=== PATIENT | female | born 1990 | race Caucasian/White ===

== ENCOUNTER → 2018-03-24 13:48 | Outpatient (REF) | payer OTHER, SELFPAY ==
[2018-03-28 18:02] LABS: QuantiFERON TB NEGATIVE (Negative)
== END ==
LOC: LAB 13:48
PROVIDERS: Visit Provider Family Medicine
DX: Z11.1 Encounter for screening for respiratory tuberculosis (principal)
CPT/HCPCS: 36415; 86480

== ENCOUNTER → 2018-08-14 19:44 | Outpatient (REF) | payer OTHER, SELFPAY ==
[2018-08-14 20:17] LABS: HEMOLYSIS < 15 (0-50)
[2018-08-14 20:19] LABS: Add Manual Diff / Slide Review NO; Basophils Absolute Auto 0 /uL (0-100); Basophils Percent Auto 0.7 % (0-2); Eosinophils Absolute Auto 200 /uL (0-450); Eosinophils Percent Auto 2.3 % (2-4); Hematocrit 39.9 % (36-46); Hemoglobin 13.5 g/dL (12.0-16.0); Lymphocytes Absolute Auto 1000 /uL (1100-4500); Lymphocytes Percent Auto 15.8 % (25-40); Mean Corpuscular HGB Conc 33.8 % (30-36); Mean Corpuscular Hemoglobin 28.2 PG (26-34); Mean Corpuscular Volume 83.5 fL (80-100); Monocytes Absolute Auto 500 /uL (0-900); Monocytes Percent Auto 7.4 % (3-14); Neutrophils Absolute Auto 4800 /uL (1500-7000); Neutrophils Percent Auto 73.8 % (50-75); Platelet Count 154 X10^3/uL (150-400); Red Blood Cell Count 4.78 X10^6/uL (4.0-5.2); Red Cell Distribution Width 13.6 % (11.6-14.8); White Blood Cell Count 6.5 X10^3/uL (4.5-11.0)
[2018-08-14 20:23] LABS: Alanine Aminotransferase 14 IU/L (9-52); Albumin 4.8 g/dL (3.5-5.0); Albumin Globulin Ratio 1.7 (1.0-2.8); Alkaline Phosphatase 57 U/L (38-126); Aspartate Aminotransferase 20 IU/L (14-36); BUN Creatinine Ratio 11.1 (6-22); Bilirubin Total 0.7 mg/dL (0.2-1.3); Blood Urea Nitrogen 10 mg/dL (7-17); Calcium 9.9 mg/dL (8.4-10.2); Carbon Dioxide 30 mmol/L (22-32); Chloride 103 mmol/L (98-107); Estimated Glomerular Filt Rate > 60.0 mL/min (>60); Globulin 2.9 g/dL (1.7-4.1); Glucose 127 mg/dL (70-100); Potassium 4.3 mmol/L (3.4-5.1); Sodium 143 mmol/L (137-145); Total Protein 7.7 g/dL (6.3-8.2)
[2018-08-14 20:50] LABS: Erythrocyte Sedimentation Rate 16 MM/HR (0-20)
[2018-08-14 20:54] LABS: Thyroid Stimulating Hormone 0.34 uIU/mL (0.47-4.68)
[2018-08-14 20:58] LABS: Ferritin 42.2 ng/mL (6.27-137)
[2018-08-14 23:36] LABS: Folate 10.1 ng/mL (2.76-20.0); Vitamin B12 225 pg/mL (239-931)
== END ==
LOC: LAB 19:44
PROVIDERS: Visit Provider Family Medicine
DX: E03.9 Hypothyroidism, unspecified (principal); R53.83 Other fatigue; R53.1 Weakness; G89.29 Other chronic pain
CPT/HCPCS: 36415; 80053; 82607; 82728; 82746; 84443; 85025; 85651

== ENCOUNTER → 2020-06-07 10:37 | Outpatient (CLI) | payer OTHER, SELFPAY ==
[2020-06-07 12:28] LABS: Add Manual Diff / Slide Review NO; Basophils Absolute Auto 0 /uL (0-100); Basophils Percent Auto 0.3 % (0-2); Eosinophils Absolute Auto 100 /uL (0-450); Eosinophils Percent Auto 1.2 % (2-4); Hematocrit 39.2 % (36-46); Hemoglobin 13.6 g/dL (12.0-16.0); Lymphocytes Absolute Auto 2000 /uL (1100-4500); Lymphocytes Percent Auto 24.4 % (25-40); Mean Corpuscular HGB Conc 34.8 % (30-36); Mean Corpuscular Hemoglobin 28.7 PG (26-34); Mean Corpuscular Volume 82.4 fL (80-100); Monocytes Absolute Auto 400 /uL (0-900); Monocytes Percent Auto 5.1 % (3-14); Neutrophils Absolute Auto 5600 /uL (1500-7000); Platelet Count 234 X10^3/uL (150-400); Red Blood Cell Count 4.75 X10^6/uL (4.0-5.2); Red Cell Distribution Width 13.6 % (11.6-14.8); White Blood Cell Count 8.1 X10^3/uL (4.5-11.0)
[2020-06-07 12:52] LABS: Alanine Aminotransferase 13 IU/L (<35); Albumin 4.7 g/dL (3.5-5.0); Albumin Globulin Ratio 1.6 (1.0-2.8); Alkaline Phosphatase 50 U/L (38-126); Aspartate Aminotransferase 22 IU/L (14-36); BUN Creatinine Ratio 16.5 (6-22); Bilirubin Total 0.4 mg/dL (0.2-1.3); Blood Urea Nitrogen 13 mg/dL (7-17); Calcium 9.7 mg/dL (8.4-10.2); Carbon Dioxide 28 mmol/L (22-32); Chloride 102 mmol/L (98-107); Estimated Glomerular Filt Rate > 60.0 mL/min (>60); Globulin 2.9 g/dL (1.7-4.1); Glucose 86 mg/dL (70-100); HEMOLYSIS < 15 (0-50); Potassium 4.1 mmol/L (3.4-5.1); Sodium 138 mmol/L (137-145); Total Protein 7.6 g/dL (6.3-8.2)
== END ==
PROVIDERS: PCP Registered Nurse; Referring Provider Registered Nurse; Visit Provider Registered Nurse
DX: Z00.00 Encounter for general adult medical examination without abnormal findings (principal)
CPT/HCPCS: 36415; 80053; 85025

== ENCOUNTER 2021-03-26 08:33 | Day surgery (SDC) | payer OTHER, SELFPAY ==
[2021-03-24 12:49] VITALS: BMI 26.3
[2021-03-26] VITALS (10 sets, daily range): BP systolic 113–143; BP diastolic 72–97; PULSE 51–85; RESP 10–17; TEMP 35.9–36.6; O2SAT 96–100; BMI 26.3
[2021-03-26] MEDS: SCOPOLAMINE 1 PATCH TOP (09:14)
[2021-03-26] MEDS: LACTATED RINGERS 1,000 ML 42 ML IV (09:14)
[2021-03-26] MEDS: ACETAMINOPHEN 325 MG TABLET 975 MG PO (09:14)
--- NOTE | 2021-03-26 10:52 | PM.PREOP ---
Pre-operative Note Interval Note History & Physical reviewed/Exam performed by Physician: Yes Changes to H&P: Yes
--- NOTE | 2021-03-26 10:53 | PM.HP.1 ---
History of Present Illness History of Present Illness Date Patient Seen: 03/26/21 Time Patient Seen: 10:53 Chief complaint: Chronic tonsillitis Narrative: 31-year-old female with with chronic tonsillitis, tonsil stones, chronic throat pain, recurring acute tonsillitis and some upper airway obstruction, incompletely managed with medical therapy, presents for tonsillectomy and possible adenoidectomy. She was last seen in clinic , no interval health changes, stable fibromyalgia and asthma. No recent cough cold or fever. She is requesting Zofran to use as needed postoperatively, evidently an issue with pain medicine in the past. Patient History Medical History [place] disease (1998) IBS (irritable bowel syndrome) Surgical History History of lung biopsy (1998) Family & Social History Social History: household members spouse Tobacco & Substance use: Smoking Status Never smoker alcohol intake never Substance Use Type does not use Meds Home Medications and Allergies Home Medications Medication Instructions Recorded Confirmed Type acyclovir 800 mg tablet 800 mg PO DAILY #30 tab 05/26/20 03/26/21 Rx albuterol sulfate 90 mcg/actuation 2 puff INHALATION Q4-6H PRN #8.5 g 11/14/20 03/26/21 Rx aerosol inhaler Fish Oil PO 12/16/20 12/16/20 History Naltrexone Low Dose 5 mg PO DAILY 12/16/20 03/26/21 History Vitamin B12 PO 12/16/20 12/16/20 History Vitamin D3 PO 12/16/20 12/16/20 History cetirizine 10 mg tablet 10 mg PO DAILY 03/26/21 03/26/21 History Allergies Allergy/AdvReac Type Severity Reaction Status Date / Time iodine AdvReac hives Verified 12/16/20 16:07 Review of Systems Review of Systems Narrative: Negative except as mentioned in the HPI Exam Vital Signs (past 8 hours): - 03/26/21 09:00 Temperature 97.6 F Pulse Rate 80 Respiratory Rate 16 Blood Pressure 113/74 Pulse Oximetry 98 Oxygen Delivery Method Room Air Narrative Exam Narrative: Well-developed well-nourished female in no acute distress heart regular rate and rhythm without murmur, lungs clear to auscultation bilaterally Assessment & Plan Assessment & Plan narrative: Assessment: Chronic tonsillitis, tonsil stones, chronic throat pain, recurrent acute tonsillitis and upper airway obstruction Plan: Following discussion of the material risks benefits complications and alternatives, the patient elected to proceed with tonsillectomy and possible adenoidectomy. Time Spent With Patient Critical Care time: I spent a total of [] minutes of critical care time on this patient's care today; this time is exclusive of procedural time.
--- NOTE | 2021-03-26 10:55 | PM.OP.1 ---
Operative Date/Time/Diagnoses Date of procedure: 03/26/21 Time of procedure: 11:43 Pre-op diagnosis: Chronic tonsillitis, tonsil stones, throat pain, recurring acute tonsillitis and upper airway obstruction Post-op diagnosis: same Procedure & Clinicians Procedure: Tonsillectomy Same procedure as scheduled: Yes Indications: 31-year-old female with the above diagnoses incompletely managed with medical therapy presents for the above procedure. Following discussion of the material risks benefits complications and alternatives, she elected to proceed. Surgeon: Dakota Johnson Click Yes if Unassisted: Yes Anesthesia Type: General and Local Operative Notes Findings: Intact palate, single uvula, 2+ tonsils with stones, right minimally irregular, no significant adenoids Estimated Blood Loss (mL): 20 Procedure in detail: Following identification and confirmation of consent the patient was brought to the operating room suite and placed in the supine position. General endotracheal anesthesia was administered. A head wrap, shoulder roll, and mouth gag were placed and a red rubber catheter was inserted through the nostril and out the mouth to retract the soft palate. There was no visible adenoid tissue. The left tonsil was retracted medially and suction electrocautery on a setting of 30 was used to dissect the tonsil in a subcapsular plane, followed by hemostasis with the same. This process was repeated on the right side with identical findings. The tonsillar fossae were superficially infiltrated bilaterally with a 1:1 mixture of 1% lidocaine 1 100,000 epinephrine and 0.25% Marcaine 1 to [id number] epinephrine. Mouth gag and rubber catheter were removed and the patient was extubated in the operating room and taken to the recovery room in stable condition without known complication. Complications: none Post-operative Condition: stable Disposition: same day surgery Plan for aftercare: Push fluids, alternate Tylenol and Advil every 3 hours for baseline pain control, oxycodone for breakthrough pain, Zofran if necessary for nausia. Soft diet 2 full weeks, no heavy lifting or straining 2 weeks.
--- NOTE | 2021-03-26 10:57 | SUR.OPER ---
Supine on padded OR bed, head on pillow, arms padded and tucked at sides, legs uncrossed, safety belt at thigh, tape over blanket over lower legs .
[2021-03-26] MEDS: BUPIVACAINE 0.25% (PF) VIAL 30 ML INJ (11:24)
[2021-03-26] MEDS: LIDOCAINE 1% W/EPI 20 ML INJ (11:25)
[2021-03-26] MEDS: fentaNYL 100 MCG/2 ML INJ IV (12:22)
[2021-03-26] MEDS: OXYCODONE IR 5 MG TABLET PO ×2 (12:24→12:42)
== END 2021-03-26 13:15 | disposition home or self-care (01) ==
PROVIDERS: PCP Registered Nurse; Referring Provider Otolaryngology; Visit Provider Otolaryngology
PROC: (CPT 42826; principal; 2021-03-26 10:15)
DX: J03.91 Acute recurrent tonsillitis, unspecified (principal); J35.01 Chronic tonsillitis; J35.8 Other chronic diseases of tonsils and adenoids; M79.7 Fibromyalgia; J45.909 Unspecified asthma, uncomplicated
CPT/HCPCS: 42826; J0330; J1100; J2250; J2405; J2704; J3010

== ENCOUNTER 2021-03-29 21:14 | Emergency (ER) | payer OTHER, SELFPAY ==
[2021-03-29 21:17] VITALS: BP 124/81; PULSE 82; RESP 22; TEMP 36.2; O2SAT 97
--- NOTE | 2021-03-29 23:55 | ED.RECABL ---
HPI - Recheck/Abnormal Lab/Rx General Chief Complaint: Recheck/Abnormal Lab/Rx Stated Complaint: BLEEDING AFTER TONSILECTOMY ON 03/26 Time Seen by Provider: 03/29/21 23:47 Source: patient Mode of arrival: Ambulatory History of Present Illness HPI narrative: 31-year-old woman who is now 1 day for post tonsillectomy. She is using intermittent doses of ibuprofen, Tylenol and oxycodone and finding that it isn't all that helpful with pain control so she has not been taking as much. She is able to eat and drink small amounts. Today she noticed that some of the eschar came off 1 of the tonsillar pillars and she was having a slight amount of bleeding. She comes in for further evaluation. She complains that her pain is still not adequately controlled, she is having fullness in the posterior pharynx and tightness over the TMJ area bilaterally. She is having no fevers, cough, wheezing, abdominal pain, vomiting, diarrhea. Related Data Home Medications Medication Instructions Recorded Confirmed Fish Oil PO 12/16/20 12/16/20 Naltrexone Low Dose 5 mg PO DAILY 12/16/20 03/26/21 Vitamin B12 PO 12/16/20 12/16/20 Vitamin D3 PO 12/16/20 12/16/20 cetirizine 10 mg tablet 10 mg PO DAILY 03/26/21 03/26/21 Previous Rx's Medication Instructions Recorded acyclovir 800 mg tablet 800 mg PO DAILY #30 tab 05/26/20 albuterol sulfate 90 mcg/actuation 2 puff INHALATION Q4-6H PRN #8.5 g 11/14/20 aerosol inhaler Allergies Allergy/AdvReac Type Severity Reaction Status Date / Time iodine AdvReac hives Verified 12/16/20 16:07 Review of Systems Review of Systems Narrative: Remainder of complete review of systems is otherwise unremarkable except for that included in the HPI. Patient History Medical History (Updated 03/30/21 @ 00:01 by Aniya River MD) [place] disease (1998) IBS (irritable bowel syndrome) Surgical History (Updated 03/29/21 @ 23:57 by Aniya River MD) History of lung biopsy (1998) History of tonsillectomy Social History household members: spouse Smoking Status: Never smoker alcohol intake: never Smoking Status: Never smoker Substance Use Type: does not use Exam Narrative Exam Narrative: General: Alert appropriate in no acute distress HEENT: Appropriate amount of eschar and erythema over the tonsillar pillars with no active bleeding at this time. She does not have significant cervical adenopathy. Respiratory: Able to speak in full sentences, no obvious respiratory distress Skin: No obvious rashes, warm and dry Neurologic: Grossly intact no obvious asymmetries or abnormalities Psych: appropriate insight and affect, cooperative Initial Vital Signs Initial Vital Signs: Vital Signs Temperature 97.2 F L 03/29/21 21:17 Pulse Rate 82 03/29/21 21:17 Respiratory Rate 22 03/29/21 21:17 Blood Pressure 124/81 03/29/21 21:17 Pulse Oximetry 97 03/29/21 21:17 Course Vital Signs Vital signs: Vital Signs - 8 hr 03/29/21 21:17 Temperature 97.2 F L Pulse Rate 82 Respiratory Rate 22 Blood Pressure 124/81 Pulse Oximetry 97 MDM - Recheck/Abnormal Lab/Rx MDM Narrative Medical decision making narrative: 31-year-old woman day 4 post tonsillectomy for chronic tonsillitis with some bleeding after eschar came off 1 of the tonsillar pillars today. She has been observed in the emergency department for approximately 3 hours and bleeding continues to improve. No additional treatment was required. Discussed options for helping with pain control. Recommend switching to 400 mg of ibuprofen with Tylenol simultaneously an adding the oxycodone to that for severe pain. She is given the IM dose of Toradol to help with pain in the emergency department. She is otherwise healing as expected with all clinical findings appropriate for day 4 of her recovery. She is safe for home discharge Discharge Plan Departure Patient Disposition: Home Clinical Impression: Post-operative haemorrhage, Post-operative pain Instructions: DI for Tonsillectomy-Adult Activity Restrictions/Additional Instructions: Thank you for coming in today You did have a little bit of bleeding as some of the eschar came off the surgical site. Fortunately your body has handled this nicely and the bleeding is stopped at this time. The tonsil sites look absolutely appropriate for this point in your recovery. Using 400 mg of ibuprofen (2 [id number] pills) and 1 Tylenol every 6 hours can be very helpful in controlling pain. For severe pain adding an oxycodone to this combination can be helpful. Warm salt water rinses can help remove some of the debris from the surgical site and help a bit with the bad taste and smell in your mouth. Your healing seems to be absolutely appropriate for this stage of recovery. I hope you continue to heal nicely Prescriptions: No Action albuterol sulfate 90 mcg/actuation HFA aerosol inhaler 2 puff inhalation Q4-6H PRN (Reason: shortness of breath or wheezing) Qty: 8.5 2RF Naltrexone Low Dose 5 mg 5 mg PO DAILY 0RF Vitamin B12 PO 0RF Fish Oil PO 0RF Vitamin D3 PO 0RF acyclovir 800 mg tablet 800 mg PO DAILY Qty: 30 0RF cetirizine 10 mg Tablet 10 mg PO DAILY 0RF Referrals: Mg Estrada ARNP [Primary Care Provider] -
[2021-03-30] MEDS: KETOROLAC 30 MG/ML VIAL IM
[2021-03-30 00:10] VITALS: PULSE 77; RESP 14; O2SAT 99
== END 2021-03-30 00:10 | disposition home or self-care (01) ==
PROVIDERS: Emergency Provider Emergency Medicine; PCP Registered Nurse
DX: K91.840 Postprocedural hemorrhage of a digestive system organ or structure following a digestive system procedure (principal); G89.18 Other acute postprocedural pain
CPT/HCPCS: 96372; 99283; J1885

== ENCOUNTER 2021-06-30 16:07 | Emergency (ER) | payer OTHER, SELFPAY ==
[2021-06-30] VITALS (9 sets, daily range): BP systolic 116–128; BP diastolic 64–81; PULSE 92–106; RESP 20–27; TEMP 36.6; O2SAT 96–99
--- NOTE | 2021-06-30 16:35 | DI.CT.S_ITS ---
PROCEDURE: CT ABDOMEN PELVIS WO CON INDICATIONS: abdominal pain TECHNIQUE: Axial sections were acquired from the lung bases to the pubic symphysis. Coronal and sagittal reformats were performed. For radiation dose reduction, the following was used: automated exposure control, adjustment of mA and/or kV according to patient size. COMPARISON: None. FINDINGS: Image quality: Excellent. Lung bases: Unremarkable. Heart: No significant findings. URINARY: Right Kidney: No stones or hydronephrosis. Right Ureter: No hydroureter. Left Kidney: No stones or hydronephrosis. Left Ureter: No hydroureter. Bladder: Normal wall thickness. No stones. ABDOMEN: Liver: Unremarkable. Gallbladder: Unremarkable. Biliary ducts: Unremarkable. Pancreas: Unremarkable. Spleen: The spleen is mildly enlarged, measuring 14.5 cm craniocaudal. Adrenal Glands: Unremarkable. Stomach and Bowel: Stomach, small bowel loops, and colon are unremarkable. A normal appendix is seen, as on series 2, image 56. Peritoneum: No abnormal intraperitoneal fluid. No free air. Ventral Wall: No hernia. Abdominal Nodes: No enlarged retroperitoneal or mesenteric lymph nodes. Vessels: Aorta and inferior vena cava are normal in size. PELVIS: Pelvic Organs: The uterus appears normal for age. No adnexal masses are seen. There is a left ovarian cyst seen that measures approximately 2.9 cm, which is considered to be within physiologic limits. Pelvic Nodes: Unremarkable. Miscellaneous: No inguinal hernias are seen. Bones: Mild dextroconvex scoliotic curvature is seen. IMPRESSION: Normal appendix. Negative for bowel obstruction. Incidental note is made of: Mild splenomegaly Dextroconvex scoliotic curvature Left ovarian cyst, considered to be within physiologic limits. Dictated by: Rogers Blake M.D. on 06/30/2021 at 17:07 Approved by: Rogers Blake M.D. on 06/30/2021 at 17:10
--- NOTE | 2021-06-30 16:39 | ED.NAVMDI ---
HPI - Nausea/Vomiting/Diarrhea <Johnny Campos PA-C - Last Filed: 06/30/21 19:44> General Chief complaint: Nausea/Vomiting/Diarrhea Stated complaint: UNABLE TO STOP THROWING UP Time Seen by Provider: 06/30/21 16:25 Source: patient Mode of arrival: Ambulatory History of Present Illness HPI Narrative: Patient presents to the ED complaining of nausea and vomiting for the past 24 hours. She has had epigastric abdominal pain radiating into her back. She has a history of irritable bowel syndrome and has occasional diarrhea episodes and admits that she has had 1 episode of diarrhea today. She has been vomiting multiple times throughout the day today unable to keep any liquids or food down today last meal was dinner last night which was lettuce wraps. No reported fever. She states that she has been on an antibiotic for chronic sinusitis and was scheduled to see an ENT and a neurologist for her dizziness and headaches that she has been having off and on for the past few weeks. She states she is having a mild headache today however her concern today is mostly related to the nausea and the abdominal pain. Related Data Home Medications Medication Instructions Recorded Confirmed Fish Oil PO 12/16/20 06/22/21 Naltrexone Low Dose 5 mg PO DAILY 12/16/20 06/22/21 Vitamin B12 PO 12/16/20 06/22/21 Vitamin D3 PO 12/16/20 06/22/21 cetirizine 10 mg tablet 10 mg PO DAILY 03/26/21 06/22/21 Saccharomyces boulardii [Daily PO 03/31/21 06/22/21 Probiotic (S. boulardii)] Previous Rx's Medication Instructions Recorded acyclovir 800 mg tablet 800 mg PO DAILY #30 tab 05/26/20 albuterol sulfate 90 mcg/actuation 2 puff INHALATION Q4-6H PRN #8.5 g 11/14/20 aerosol inhaler Allergies Allergy/AdvReac Type Severity Reaction Status Date / Time iodine AdvReac hives Verified 06/30/21 17:51 Review of Systems <Johnny Campos PA-C - Last Filed: 06/30/21 19:44> Review of Systems ROS Unobtainable: All systems reviewed & are unremarkable except as noted in HPI and below Constitutional Constitutional: Denies chills, Denies fatigue, Denies fever(s), Denies frequent falls, Denies lethargy and Denies weakness Eyes Eyes: Denies change in vision, Denies eye discharge, Denies irritation and Denies loss of vision ENT Ears, Nose, Mouth, and Throat: Denies change in voice, Denies dizziness, Denies neck pain, Denies sore throat and Denies throat swelling Cardiovascular Cardiovascular: Denies chest pain, Denies irregular heart rhythm, Denies lightheadedness, Denies palpitations, Denies dyspnea, Denies dyspnea on exertion and Denies orthopnea Respiratory Respiratory: Denies cough, Denies dyspnea, Denies dyspnea on exertion and Denies wheezing Gastrointestinal Gastrointestinal: Reports abdominal pain, Reports change in bowel habits, Reports cramping, Reports diarrhea, Reports loose stools, Reports nausea and Reports vomiting Genitourinary Genitourinary: Denies hematuria, Denies flank pain, Denies urinary incontinence and Denies urinary urgency Musculoskeletal Musculoskeletal: Denies back pain, Denies muscle weakness, Denies neck pain, Denies numbness and Denies tingling Integumentary/Breasts Skin/Breast: Denies pruritus, Denies erythema, Denies rash and Denies wounds Neurologic Neurologic: Denies behavioral changes, Denies confusion, Denies dizziness, Denies frequent falls, Denies loss of vision, Denies numbness, Denies tingling and Denies weakness Psychiatric Psychiatric: Denies anxiety, Denies behavioral changes, Denies confusion, Denies depression, Denies homicidal ideation and Denies suicidal ideation Endocrine Endocrine: Denies fatigue, Denies flushing and Denies palpitations Hematologic/Lymphatic Hematologic/Lymphatic: Denies easy bruising Allergic/Immunologic Allergic/Immunologic: Denies urticaria, Denies throat swelling and Denies wheezing Patient History <Johnny Campos PA-C - Last Filed: 06/30/21 19:44> Medical History [place] disease (1998) IBS (irritable bowel syndrome) Surgical History History of lung biopsy (1998) History of tonsillectomy Social History household members: spouse Smoking Status: Never smoker alcohol intake: never Smoking Status: Never smoker Substance Use Type: does not use Exam <Johnny Campos PA-C - Last Filed: 06/30/21 19:44> Initial Vital Signs Initial Vital Signs: Vital Signs Temperature 97.8 F 06/30/21 16:11 Pulse Rate 106 H 06/30/21 16:11 Respiratory Rate 20 06/30/21 16:11 Blood Pressure 128/72 06/30/21 16:11 Pulse Oximetry 97 06/30/21 16:11 Const General: cooperative, in distress and ill appearing Nutritional Appearance: average body habitus HENMT Head: normal to inspection and normocephalic Ears: hearing grossly normal bilaterally and external ears normal Nose: external nose normal and nares normal Face and sinus: normal facial exam and face symmetric Eyes Pupils: PERRL Resp Effort & Inspection: normal respiratory effort and able to speak in complete sentences Auscultation: clear to auscultation bilaterally Cardio Rhythm: regular rhythm Heart Sounds: S1 normal and S2 normal GI Inspection: normal to inspection Palpation: tender (Epigastric region) Percussion: normal to percussion Auscultation: normal bowel sounds Skin General: no rashes or lesions noted <Kathie Laura DO - Last Filed: 07/01/21 01:40> Initial Vital Signs Initial Vital Signs: Vital Signs Temperature 97.8 F 06/30/21 16:11 Pulse Rate 106 H 06/30/21 16:11 Respiratory Rate 20 06/30/21 16:11 Blood Pressure 128/72 06/30/21 16:11 Pulse Oximetry 97 06/30/21 16:11 Course <Johnny Campos PA-C - Last Filed: 06/30/21 19:44> Orders Ordered: ED Orders 06/30/21 16:40 COVID19 -Nasal swab/Pre-Proc Stat Complete Blood Count AUTO DIFF Stat Comprehensive Metabolic Panel Stat Lipase Stat 06/30/21 17:29 Test Urine Stat Urinalysis and Microscopic Stat Discontinued Medications Sodium Chloride (Normal Saline 0.9%) 1,000 mls @ 1,000 mls/hr IV BOLUS ONE Stop: 06/30/21 17:34 Last Infusion: 06/30/21 17:40 Dose: 0 mls/hr Documented by: Admin: 06/30/21 16:46 Dose: 1,000 mls/hr Documented by: REGINA Sodium Chloride (Normal Saline 0.9%) 1,000 mls @ 1,000 mls/hr IV BOLUS ONE Stop: 06/30/21 19:21 Last Infusion: 06/30/21 20:59 Dose: 0 mls/hr Documented by: Admin: 06/30/21 18:35 Dose: 1,000 mls/hr Documented by: ELIDA Ketorolac Tromethamine (Ketorolac 30 Mg/Ml Vial) 30 mg IV NOW ONE Stop: 06/30/21 18:23 Last Admin: 06/30/21 18:35 Dose: 30 mg Documented by: ELIDA Ondansetron HCl (Ondansetron 4 Mg/2 Ml Inj) 4 mg IV NOW ONE Stop: 06/30/21 16:36 Last Admin: 06/30/21 16:47 Dose: 4 mg Documented by: REGINA Ondansetron HCl (Ondansetron 4 Mg/2 Ml Inj) 4 mg IV NOW ONE Stop: 06/30/21 18:23 Last Admin: 06/30/21 18:35 Dose: 4 mg Documented by: ELIDA Vital Signs Vital signs: Vital Signs - 8 hr 06/30/21 18:04 06/30/21 18:30 06/30/21 18:31 Pulse Rate 102 H 98 H 96 H Respiratory Rate 25 H 27 H 22 Blood Pressure 120/73 Pulse Oximetry 96 98 98 06/30/21 19:00 06/30/21 19:30 Pulse Rate 102 H 95 H Respiratory Rate 25 H 23 Blood Pressure 124/81 119/64 Pulse Oximetry 99 <Kathie Laura DO - Last Filed: 07/01/21 01:40> Orders Ordered: ED Orders 06/30/21 16:40 COVID19 -Nasal swab/Pre-Proc Stat Complete Blood Count AUTO DIFF Stat Comprehensive Metabolic Panel Stat Lipase Stat 06/30/21 17:29 Test Urine Stat Urinalysis and Microscopic Stat Discontinued Medications Sodium Chloride (Normal Saline 0.9%) 1,000 mls @ 1,000 mls/hr IV BOLUS ONE Stop: 06/30/21 17:34 Last Infusion: 06/30/21 17:40 Dose: 0 mls/hr Documented by: Admin: 06/30/21 16:46 Dose: 1,000 mls/hr Documented by: REGINA Sodium Chloride (Normal Saline 0.9%) 1,000 mls @ 1,000 mls/hr IV BOLUS ONE Stop: 06/30/21 19:21 Last Infusion: 06/30/21 20:59 Dose: 0 mls/hr Documented by: Admin: 06/30/21 18:35 Dose: 1,000 mls/hr Documented by: ELIDA Ketorolac Tromethamine (Ketorolac 30 Mg/Ml Vial) 30 mg IV NOW ONE Stop: 06/30/21 18:23 Last Admin: 06/30/21 18:35 Dose: 30 mg Documented by: ELIDA Ondansetron HCl (Ondansetron 4 Mg/2 Ml Inj) 4 mg IV NOW ONE Stop: 06/30/21 16:36 Last Admin: 06/30/21 16:47 Dose: 4 mg Documented by: REGINA Ondansetron HCl (Ondansetron 4 Mg/2 Ml Inj) 4 mg IV NOW ONE Stop: 06/30/21 18:23 Last Admin: 06/30/21 18:35 Dose: 4 mg Documented by: ELIDA Vital Signs Vital signs: Vital Signs - 8 hr 06/30/21 18:04 06/30/21 18:30 06/30/21 18:31 Pulse Rate 102 H 98 H 96 H Respiratory Rate 25 H 27 H 22 Blood Pressure 120/73 Pulse Oximetry 96 98 98 06/30/21 19:00 06/30/21 19:30 Pulse Rate 102 H 95 H Respiratory Rate 25 H 23 Blood Pressure 124/81 119/64 Pulse Oximetry 99 MDM - Nausea/Vomiting/Diarrhea <Johnny Campos PA-C - Last Filed: 06/30/21 19:44> Differential Diagnosis Differential diagnosis: Likely gastroenteritis and dehydration Lab Data Result diagrams: 06/30/21 16:40 06/30/21 16:40 Labs: Lab Results 06/30/21 06/30/21 06/30/21 Range/Units 16:40 16:40 16:40 WBC 7.0 (4.5-11.0) X10^3/uL RBC 4.96 (4.0-5.2) X10^6/uL Hgb 14.1 (12.0-16.0) g/dL Hct 40.6 (36-46) % MCV 81.8 (80-100) fL MCH 28.4 (26-34) PG MCHC 34.7 (30-36) % RDW 13.2 (11.6-14.8) % Plt Count 145 L (150-400) X10^3/uL Neut % (Auto) 94.9 H (50-75) % Lymph % (Auto) 2.1 L (25-40) % Rankin % (Auto) 2.8 L (3-14) % Eos % (Auto) 0.0 L (2-4) % Baso % (Auto) 0.2 (0-2) % Neut # (Auto) 6600 (7869-6797) /uL Lymph # (Auto) 100 L (4388-4816) /uL Rankin # (Auto) 200 (0-900) /uL Eos # (Auto) 0 (0-450) /uL Baso # (Auto) 0 (0-100) /uL Sodium 139 (137-145) mmol/L Potassium 3.8 (3.4-5.1) mmol/L Chloride 104 (98-107) mmol/L Carbon Dioxide 30 (22-32) mmol/L BUN 12 (7-17) mg/dL Creatinine 0.86 (0.52-1.04) mg/dL Estimated GFR > 60.0 (>60) mL/min BUN/Creatinine Ratio 14.0 (6-22) Glucose 137 H (70-100) mg/dL Calcium 9.3 (8.4-10.2) mg/dL Total Bilirubin 0.7 (0.2-1.3) mg/dL AST 27 (14-36) IU/L ALT 16 (<35) IU/L Alkaline Phosphatase 57 (38-126) U/L Total Protein 8.0 (6.3-8.2) g/dL Albumin 4.7 (3.5-5.0) g/dL Globulin 3.3 (1.7-4.1) g/dL Albumin/Globulin Ratio 1.4 (1.0-2.8) Lipase 37 (23-300) U/L Urine Color Urine Appearance Urine pH (4.5-8.0) Ur Specific [place] (1.000-1.035) Urine Protein (Negative) Urine Glucose (UA) (Negative) g/dL Urine Ketones (NEGATIVE) Urine Occult Blood (Negative) Urine Nitrate (Negative) Urine Bilirubin (NEGATIVE) Urine Urobilinogen (0.2) E.U./dL Ur Leukocyte Esterase (NEGATIVE) Urine RBC (0-5/HPF) Urine WBC (0-5/HPF) Ur Squamous Epith Cells (0-5/HPF) Urine Bacteria (None) Urine Mucus (Negative) Ur Culture Indicated? Urine Test (Negative) SARS-CoV-2 (PCR) Negative (Negative) 06/30/21 06/30/21 Range/Units 17:29 17:29 WBC (4.5-11.0) X10^3/uL RBC (4.0-5.2) X10^6/uL Hgb (12.0-16.0) g/dL Hct (36-46) % MCV (80-100) fL MCH (26-34) PG MCHC (30-36) % RDW (11.6-14.8) % Plt Count (150-400) X10^3/uL Neut % (Auto) (50-75) % Lymph % (Auto) (25-40) % Rankin % (Auto) (3-14) % Eos % (Auto) (2-4) % Baso % (Auto) (0-2) % Neut # (Auto) (7324-7214) /uL Lymph # (Auto) (1960-3123) /uL Rankin # (Auto) (0-900) /uL Eos # (Auto) (0-450) /uL Baso # (Auto) (0-100) /uL Sodium (137-145) mmol/L Potassium (3.4-5.1) mmol/L Chloride (98-107) mmol/L Carbon Dioxide (22-32) mmol/L BUN (7-17) mg/dL Creatinine (0.52-1.04) mg/dL Estimated GFR (>60) mL/min BUN/Creatinine Ratio (6-22) Glucose (70-100) mg/dL Calcium (8.4-10.2) mg/dL Total Bilirubin (0.2-1.3) mg/dL AST (14-36) IU/L ALT (<35) IU/L Alkaline Phosphatase (38-126) U/L Total Protein (6.3-8.2) g/dL Albumin (3.5-5.0) g/dL Globulin (1.7-4.1) g/dL Albumin/Globulin Ratio (1.0-2.8) Lipase (23-300) U/L Urine Color Yellow Urine Appearance Clear Urine pH 5.5 (4.5-8.0) Ur Specific [place] 1.020 (1.000-1.035) Urine Protein Negative (Negative) Urine Glucose (UA) Negative (Negative) g/dL Urine Ketones 2+ H (NEGATIVE) Urine Occult Blood Trace-lysed (Negative) Urine Nitrate Negative (Negative) Urine Bilirubin Negative (NEGATIVE) Urine Urobilinogen 0.2 (0.2) E.U./dL Ur Leukocyte Esterase Negative (NEGATIVE) Urine RBC 0-1/hpf (0-5/HPF) Urine WBC 0-1/hpf (0-5/HPF) Ur Squamous Epith Cells 0-1 /hpf (0-5/HPF) Urine Bacteria None seen (None) Urine Mucus 1+ H (Negative) Ur Culture Indicated? Cult not indicated Urine Test Negative (Negative) SARS-CoV-2 (PCR) (Negative) Point of Care Testing Test Results Negative Glucose POC 137 Urine Dip Bedside Urine Glucose Negative Bedside Urine Bilirubin ++ 2 Bedside Urine Ketone ++ 40 Urine Specific [place] 1.025 Bedside Urine Occult Blood - Negative Bedside Urine pH 6.0 Bedside Urine Protein - Negative Bedside Urine Nitrite - Negative Bedside Urine Leukocytes - Negative Esterase Imaging Data CT scan - abdomen/pelvis: Radiologist's Impression: PROCEDURE:? CT ABDOMEN PELVIS WO CON ? INDICATIONS:? abdominal pain ? TECHNIQUE:? Axial sections were acquired from the lung bases to the pubic symphysis.? Coronal and sagittal reformats were performed.? For radiation dose reduction, the following was used: ?automated exposure control, adjustment of mA and/or kV according to patient size.? ? COMPARISON:? None. ? FINDINGS:? Image quality:? Excellent.? ? Lung bases:? Unremarkable.? ? Heart:? No significant findings. ? URINARY: Right Kidney: ? No stones or hydronephrosis.? Right Ureter:? No hydroureter.? ? Left Kidney: ? No stones or hydronephrosis. Left Ureter:? No hydroureter.? ? Bladder:? Normal wall thickness. No stones. ? ? ? ABDOMEN: Liver:? Unremarkable.? ? Gallbladder:? Unremarkable.? ? Biliary ducts:? Unremarkable.? ? Pancreas:? Unremarkable.? ? Spleen:? The spleen is mildly enlarged, measuring 14.5 cm craniocaudal. Adrenal Glands:? Unremarkable.? ? ? Stomach and Bowel:? Stomach, small bowel loops, and colon are unremarkable.? A normal appendix is seen, as on series 2, image 56. Peritoneum:? No abnormal intraperitoneal fluid.? No free air.? ? Ventral Wall: ? No hernia.? Abdominal Nodes:? No enlarged retroperitoneal or mesenteric lymph nodes.? Vessels:? Aorta and inferior vena cava are normal in size.? ? PELVIS: Pelvic Organs: The uterus appears normal for age.? No adnexal masses are seen.? There is a left ovarian cyst seen that measures approximately 2.9 cm, which is considered to be within physiologic limits. Pelvic Nodes: Unremarkable. Miscellaneous: No inguinal hernias are seen. ? ? ? Bones:? Mild dextroconvex scoliotic curvature is seen.? ? IMPRESSION:? ? Normal appendix. ? Negative for bowel obstruction. ? ? ? Incidental note is made of: Mild splenomegaly Dextroconvex scoliotic curvature Left ovarian cyst, considered to be within physiologic limits. ? ? Dictated by: Rogers Blake M.D. on 06/30/2021 at 17:07 ? ? Approved by: Rogers Blake M.D. on 06/30/2021 at 17:10?? MDM Narrative Medical decision making narrative: Patient was evaluated today for nausea and vomiting that has been going on for the past few days. She has been home unable to keep any fluids down and as result has become quite dehydrated and is having headache. Blood work and CT of the abdomen pelvis show no evidence of any infection or acute process and as result should be treated symptomatically. Antiemetics and NSAIDs for effective in treating her nausea and her pain. She responded well to the IV fluids and reports feeling much better and is agreeable to be discharged home. A prescription for Phenergan p.o. will be sent over to her pharmacy to help minimize her nausea. She will follow-up with her PCP or return to the ED as needed. <Kathie Laura, DO - Last Filed: 07/01/21 01:40> Lab Data Labs: Lab Results 06/30/21 06/30/21 06/30/21 Range/Units 16:40 16:40 16:40 WBC 7.0 (4.5-11.0) X10^3/uL RBC 4.96 (4.0-5.2) X10^6/uL Hgb 14.1 (12.0-16.0) g/dL Hct 40.6 (36-46) % MCV 81.8 (80-100) fL MCH 28.4 (26-34) PG MCHC 34.7 (30-36) % RDW 13.2 (11.6-14.8) % Plt Count 145 L (150-400) X10^3/uL Neut % (Auto) 94.9 H (50-75) % Lymph % (Auto) 2.1 L (25-40) % Rankin % (Auto) 2.8 L (3-14) % Eos % (Auto) 0.0 L (2-4) % Baso % (Auto) 0.2 (0-2) % Neut # (Auto) 6600 (8146-0758) /uL Lymph # (Auto) 100 L (6220-9828) /uL Rankin # (Auto) 200 (0-900) /uL Eos # (Auto) 0 (0-450) /uL Baso # (Auto) 0 (0-100) /uL Sodium 139 (137-145) mmol/L Potassium 3.8 (3.4-5.1) mmol/L Chloride 104 (98-107) mmol/L Carbon Dioxide 30 (22-32) mmol/L BUN 12 (7-17) mg/dL Creatinine 0.86 (0.52-1.04) mg/dL Estimated GFR > 60.0 (>60) mL/min BUN/Creatinine Ratio 14.0 (6-22) Glucose 137 H (70-100) mg/dL Calcium 9.3 (8.4-10.2) mg/dL Total Bilirubin 0.7 (0.2-1.3) mg/dL AST 27 (14-36) IU/L ALT 16 (<35) IU/L Alkaline Phosphatase 57 (38-126) U/L Total Protein 8.0 (6.3-8.2) g/dL Albumin 4.7 (3.5-5.0) g/dL Globulin 3.3 (1.7-4.1) g/dL Albumin/Globulin Ratio 1.4 (1.0-2.8) Lipase 37 (23-300) U/L Urine Color Urine Appearance Urine pH (4.5-8.0) Ur Specific [place] (1.000-1.035) Urine Protein (Negative) Urine Glucose (UA) (Negative) g/dL Urine Ketones (NEGATIVE) Urine Occult Blood (Negative) Urine Nitrate (Negative) Urine Bilirubin (NEGATIVE) Urine Urobilinogen (0.2) E.U./dL Ur Leukocyte Esterase (NEGATIVE) Urine RBC (0-5/HPF) Urine WBC (0-5/HPF) Ur Squamous Epith Cells (0-5/HPF) Urine Bacteria (None) Urine Mucus (Negative) Ur Culture Indicated? Urine Test (Negative) SARS-CoV-2 (PCR) Negative (Negative) 06/30/21 06/30/21 Range/Units 17:29 17:29 WBC (4.5-11.0) X10^3/uL RBC (4.0-5.2) X10^6/uL Hgb (12.0-16.0) g/dL Hct (36-46) % MCV (80-100) fL MCH (26-34) PG MCHC (30-36) % RDW (11.6-14.8) % Plt Count (150-400) X10^3/uL Neut % (Auto) (50-75) % Lymph % (Auto) (25-40) % Rankin % (Auto) (3-14) % Eos % (Auto) (2-4) % Baso % (Auto) (0-2) % Neut # (Auto) (7724-4940) /uL Lymph # (Auto) (6902-1594) /uL Rankin # (Auto) (0-900) /uL Eos # (Auto) (0-450) /uL Baso # (Auto) (0-100) /uL Sodium (137-145) mmol/L Potassium (3.4-5.1) mmol/L Chloride (98-107) mmol/L Carbon Dioxide (22-32) mmol/L BUN (7-17) mg/dL Creatinine (0.52-1.04) mg/dL Estimated GFR (>60) mL/min BUN/Creatinine Ratio (6-22) Glucose (70-100) mg/dL Calcium (8.4-10.2) mg/dL Total Bilirubin (0.2-1.3) mg/dL AST (14-36) IU/L ALT (<35) IU/L Alkaline Phosphatase (38-126) U/L Total Protein (6.3-8.2) g/dL Albumin (3.5-5.0) g/dL Globulin (1.7-4.1) g/dL Albumin/Globulin Ratio (1.0-2.8) Lipase (23-300) U/L Urine Color Yellow Urine Appearance Clear Urine pH 5.5 (4.5-8.0) Ur Specific [place] 1.020 (1.000-1.035) Urine Protein Negative (Negative) Urine Glucose (UA) Negative (Negative) g/dL Urine Ketones 2+ H (NEGATIVE) Urine Occult Blood Trace-lysed (Negative) Urine Nitrate Negative (Negative) Urine Bilirubin Negative (NEGATIVE) Urine Urobilinogen 0.2 (0.2) E.U./dL Ur Leukocyte Esterase Negative (NEGATIVE) Urine RBC 0-1/hpf (0-5/HPF) Urine WBC 0-1/hpf (0-5/HPF) Ur Squamous Epith Cells 0-1 /hpf (0-5/HPF) Urine Bacteria None seen (None) Urine Mucus 1+ H (Negative) Ur Culture Indicated? Cult not indicated Urine Test Negative (Negative) SARS-CoV-2 (PCR) (Negative) Point of Care Testing Test Results Negative Glucose POC 137 Urine Dip Bedside Urine Glucose Negative Bedside Urine Bilirubin ++ 2 Bedside Urine Ketone ++ 40 Urine Specific [place] 1.025 Bedside Urine Occult Blood - Negative Bedside Urine pH 6.0 Bedside Urine Protein - Negative Bedside Urine Nitrite - Negative Bedside Urine Leukocytes - Negative Esterase Discharge Plan Departure Patient Disposition: Home Clinical Impression: Gastroenteritis, Dehydration Instructions: DI for Dehydration -- Adult, DI for Nausea -- Adult, DI for Vomiting -- Adult Activity Restrictions/Additional Instructions: Drink plenty of fluids to stay hydrated. A prescription for anti nausea medicine was sent over to your pharmacy here in [facility]. He can follow up with your regular doctor or you can return to the emergency room if you have worsening symptoms or any further concerns. Prescriptions: No Action albuterol sulfate 90 mcg/actuation HFA aerosol inhaler 2 puff inhalation Q4-6H PRN (Reason: shortness of breath or wheezing) Qty: 8.5 2RF Naltrexone Low Dose 5 mg 5 mg PO DAILY 0RF Vitamin B12 PO 0RF Fish Oil PO 0RF Vitamin D3 PO 0RF acyclovir 800 mg tablet 800 mg PO DAILY Qty: 30 0RF cetirizine 10 mg Tablet 10 mg PO DAILY 0RF Saccharomyces boulardii [Daily Probiotic (S. boulardii)] PO 0RF Referrals: Mg Estrada ARNP [Primary Care Provider] - <Kathie Laura DO - Last Filed: 07/01/21 01:40> Cosign ED Attending Naliniature Attestation: I was immediately available in the department for consultation. Documentation has been reviewed.
[2021-06-30] MEDS: SODIUM CHLORIDE 0.9% 1,000 ML 1000 ML IV ×2 (16:46→18:35)
[2021-06-30] MEDS: ONDANSETRON 4 MG/2 ML INJ IV ×2 (16:47→18:35)
[2021-06-30 16:53] LABS: Add Manual Diff / Slide Review NO; Basophils Absolute Auto 0 /uL (0-100); Basophils Percent Auto 0.2 % (0-2); Eosinophils Absolute Auto 0 /uL (0-450); Hematocrit 40.6 % (36-46); Hemoglobin 14.1 g/dL (12.0-16.0); Lymphocytes Absolute Auto 100 /uL (1100-4500); Lymphocytes Percent Auto 2.1 % (25-40); Mean Corpuscular HGB Conc 34.7 % (30-36); Mean Corpuscular Hemoglobin 28.4 PG (26-34); Mean Corpuscular Volume 81.8 fL (80-100); Monocytes Absolute Auto 200 /uL (0-900); Monocytes Percent Auto 2.8 % (3-14); Neutrophils Absolute Auto 6600 /uL (1500-7000); Neutrophils Percent Auto 94.9 % (50-75); Platelet Count 145 X10^3/uL (150-400); Red Blood Cell Count 4.96 X10^6/uL (4.0-5.2); Red Cell Distribution Width 13.2 % (11.6-14.8)
[2021-06-30 17:06] LABS: Alanine Aminotransferase 16 IU/L (<35); Albumin 4.7 g/dL (3.5-5.0); Albumin Globulin Ratio 1.4 (1.0-2.8); Alkaline Phosphatase 57 U/L (38-126); Aspartate Aminotransferase 27 IU/L (14-36); Bilirubin Total 0.7 mg/dL (0.2-1.3); Blood Urea Nitrogen 12 mg/dL (7-17); Calcium 9.3 mg/dL (8.4-10.2); Carbon Dioxide 30 mmol/L (22-32); Chloride 104 mmol/L (98-107); Estimated Glomerular Filt Rate > 60.0 mL/min (>60); Globulin 3.3 g/dL (1.7-4.1); Glucose 137 mg/dL (70-100); HEMOLYSIS < 15 (0-50); Lipase 37 U/L (23-300); Potassium 3.8 mmol/L (3.4-5.1); Sodium 139 mmol/L (137-145)
[2021-06-30 17:24] LABS: COVID19 -Nasal RAPID Negative (Negative)
--- NOTE | 2021-06-30 17:45 | PC.NURSE ---
Pt has HX of IBS, recent tonsil removal, HX of chronic sinus infections, chronic antibiotic use due to sinus issues. Pt states she has IV contrast allergy, last event was during [employer].
[2021-06-30 17:46] LABS: Pregnancy Test Urine Negative (Negative)
[2021-06-30 17:49] LABS: Appearance Urine UA CLEAR; Bilirubin Urine UA NEGATIVE (NEGATIVE); Color Urine UA YELLOW; Glucose Urine UA NEGATIVE (Negative); Ketones Urine UA 2+ (NEGATIVE); Leukocyte Esterase Urine UA NEGATIVE (NEGATIVE); Nitrite Urine UA NEGATIVE (Negative); Occult Blood Urine UA TRACE-LYSED (Negative); Protein Urine UA NEGATIVE (Negative); Urobilinogen Urine UA 0.2 E.U./dL (0.2)
[2021-06-30 18:04] LABS: pH Urine UA 5.5 (4.5-8.0)
[2021-06-30 18:05] LABS: Bacteria Urine None Seen; Mucus Urine 1+ (Negative); RBC Urine 0-1/HPF (0-5/HPF); Squamous Epithelial Cell Urine 0-1 /HPF (0-5/HPF); WBC Urine 0-1/HPF (0-5/HPF)
[2021-06-30 18:06] LABS: Culture Indicated Urine Cult Not Indicated
[2021-06-30] MEDS: KETOROLAC 30 MG/ML VIAL IV (18:35)
== END 2021-06-30 21:00 | disposition home or self-care (01) ==
PROVIDERS: Emergency Medicine; Emergency Provider Physician Assistant; PCP Registered Nurse
DX: K52.9 Noninfective gastroenteritis and colitis, unspecified (principal); E86.0 Dehydration; Z20.822 Contact with and (suspected) exposure to COVID-19
CPT/HCPCS: 36415; 74176; 80053; 81001; 81003; 81025; 82962; 83690; 85025; 87635; 93005; 93010; 96361; 96374; 96375; 96376; 99284; C9803; J1885; J2405

== ENCOUNTER → 2021-07-08 07:10 | Outpatient (CLI) | payer OTHER, SELFPAY ==
--- NOTE | 2021-07-08 07:37 | DI.CT.S_ITS ---
PROCEDURE: CT SINUS SCREEN WO CON INDICATIONS: Chronic maxillary sinusitis TECHNIQUE: Noncontrast 3.0 mm axial images acquired from the frontal sinuses to the mid-sella, with coronal and sagittal reformats. For radiation dose reduction, the following was used: automated exposure control, adjustment of mA and/or kV according to patient size. COMPARISON: None. FINDINGS: Image quality: Excellent. Sinuses: Minimal to mild bilateral maxillary sinus mucosal thickening,with superimposed mucus retention cyst/polyp. No fluid levels. Ostiomeatal Complexes: Ostiomeatal complexes are patent. No Ranjana cells. Miscellaneous: Visualized intra-orbital contents are normal. No lisa bullosa or paradoxical turbinate curvature. No nasal septal deviation. IMPRESSION: Minimal to mild bilaterally maxillary sinus mucosal thickening. Ostiomeatal complexes are patent. Dictated by: Anitha Arguelles M.D. on 07/08/2021 at 9:57 Approved by: Anitha Arguelles M.D. on 07/08/2021 at 10:28
== END ==
PROVIDERS: PCP Family Medicine; Referring Provider Family Medicine; Visit Provider Family Medicine
DX: J32.0 Chronic maxillary sinusitis (principal)
CPT/HCPCS: 70486

== ENCOUNTER → 2021-11-11 13:56 | Outpatient (CLI) | payer OTHER, SELFPAY ==
--- NOTE | 2021-11-11 | DI.US.S_ITS ---
LIMITED ULTRASOUND OF RIGHT BREAST: 11/11/2021 CLINICAL: Patient returns today to evaluate a density in the right breast. No prior exams were available for comparison. Color flow and real-time ultrasound of the right breast 9 o'clock region were performed. Arroyo scale images of the real-time examination were reviewed. There is a benign 1 cm x 0.8 cm x 0.3 cm oval cyst in the right breast at 9 o'clock posterior depth 8 cm from the nipple. This oval cyst is anechoic. This correlates with mammography findings. Color flow imaging demonstrates that there is no vascularity present. There also is a benign 1.4 cm x 1.9 cm x 0.9 cm oval cyst with a smooth internal wall in the right breast at 9 o'clock posterior depth 6 cm from the nipple. This oval cyst is anechoic. This correlates with mammography findings. Color flow imaging demonstrates that there is no vascularity present. IMPRESSION: BENIGN There is no sonographic evidence of malignancy. The 1 cm and 1.4 cm cysts in the right breast at 9 o'clock posterior depth are simple and therefore benign. Screening mammography beginning at age 40 is recommended. Findings and recommendations were conveyed to the patient at time of exam. This exam was interpreted at Station ID: [id number]. Electronically Signed By: Akiko benjamin/:11/11/2021 15:53:12 Entry: - 11/12/2021 12:22:26 Ultrasound BI-RADS: 2 Benign
--- NOTE | 2021-11-11 13:58 | DI.MG.S_ITS ---
BILATERAL DIGITAL DIAGNOSTIC MAMMOGRAM 3D/2D: 11/11/2021 CLINICAL: Left lump. No prior exams were available for comparison. The tissue of both breasts is extremely dense, which lowers the sensitivity of mammography. There is a 1.1 cm oval low density asymmetry with a circumscribed margin in the right breast at 9 o'clock posterior depth. There also is a 1.4 cm oval equal density focal asymmetry in the right breast at 10 o'clock posterior depth. There is a 1.1 cm round low density asymmetry in the left breast central to the nipple anterior depth. There also is a 3 cm round low density asymmetry with a circumscribed margin in the left breast at 12 o'clock middle depth. This correlates as palpated. Additionally, there is a 1.8 cm oval low density asymmetry with a circumscribed margin in the left breast at 1 o'clock middle depth. This correlates as an incidental finding. In addition, there is an 8 mm round asymmetry in the left breast at 11 o'clock middle depth. No other significant masses or calcifications are seen in either breast. IMPRESSION: INCOMPLETE: NEEDS ADDITIONAL IMAGING EVALUATION The 1.1 cm asymmetry in the right breast at 9 o'clock posterior depth most likely is a cyst and is indeterminate. The 1.4 cm asymmetry in the right breast at 10 o'clock posterior depth most likely is a cyst or a fibroadenoma and is indeterminate. The 1.1 cm round asymmetry in the left breast central to the nipple anterior depth is indeterminate. The 3 cm round asymmetry in the left breast at 12 o'clock middle depth most likely is a cyst and is indeterminate. The 1.8 cm oval asymmetry in the left breast at 1 o'clock middle depth is indeterminate. The 8 mm round asymmetry in the left breast at 11 o'clock middle depth most likely is a cyst and is indeterminate. Bilateral breast ultrasound is recommended for full evaluation of these areas . This was performed immediately following this exam. Based on the Tyrer Cuzick model (a risk assessment model) the patient's lifetime risk is 14.4% and her 10 year risk is 0.8%. According to the ACR, ACS, and NCCN guidelines, an annual breast MRI exam along with mammogram is recommended if the patient's lifetime risk is 20% or greater. This exam was interpreted at Station ID: [id number]. NOTE: For mammograms, a report in lay terms will be sent to the patient. Approximately 15% of breast malignancies will not be visualized mammographically. In the management of a palpable breast mass, a negative mammogram must not discourage biopsy of a clinically suspicious lesion. Electronically Signed By: Akiko benjamin/:11/11/2021 15:43:08 ACR BI-RADS Category 0: Incomplete 3340F
--- NOTE | 2021-11-11 13:59 | DI.US.S_ITS ---
LIMITED ULTRASOUND OF LEFT BREAST: 11/11/2021 CLINICAL: Palpable left breast lump. No prior exams were available for comparison. Color flow and real-time ultrasound of the left breast 1 o'clock, and retroareolar regions were performed. Arroyo scale images of the real-time examination were reviewed. There is a benign 1.6 cm x 1.3 cm x 1.3 cm oval cyst in the left breast at 1 o'clock middle depth 4 cm from the nipple. This correlates as palpated and with mammography findings. Color flow imaging demonstrates that there is no vascularity present. There also is a benign 3.1 cm x 2.8 cm x 1.9 cm oval cyst with a smooth internal wall in the left breast central to the nipple middle depth. This oval cyst is anechoic. This correlates as palpated and with mammography findings. Color flow imaging demonstrates that there is no vascularity present. Additionally, there is a benign 1.5 cm x 1.3 cm x 1.1 cm round cyst in the left breast at 9 o'clock middle depth. This round cyst is anechoic. This correlates as palpated and with mammography findings. Color flow imaging demonstrates that there is no vascularity present. In addition, there is a benign 1 cm x 1.1 cm x 0.4 cm oval cyst in the left breast central to the nipple anterior depth. This oval cyst is anechoic. This correlates with mammography findings. Color flow imaging demonstrates that there is no vascularity present. IMPRESSION: BENIGN The left breast palpable abnormalties correspond to simple cysts. The incidental round and oval asymmetries on the left mammogram correspond to simple cysts. No evidence of malignancy. Screening mammography beginning at age 40 is recommended. Findings and recommendations were conveyed to the patient at time of exam. This exam was interpreted at Station ID: [id number]. Electronically Signed By: Akiko benjamin/:11/11/2021 15:59:27 letter sent: Normal Exam Ultrasound BI-RADS: 2 Benign
== END ==
PROVIDERS: PCP Family Medicine; Referring Provider Family Medicine; Visit Provider Family Medicine
DX: R92.8 Other abnormal and inconclusive findings on diagnostic imaging of breast; N60.01 Solitary cyst of right breast; N60.02 Solitary cyst of left breast
CPT/HCPCS: 76642; 77066; G0279

== ENCOUNTER → 2022-04-09 10:41 | Outpatient (CLI) | payer OTHER, SELFPAY ==
[2022-04-09 11:50] LABS: Influenza A - CEPHEID Flu A POSITIVE (NEGATIVE); Influenza B - CEPHEID Flu B NEGATIVE (NEGATIVE); Respiratory Syncytial Virus Negative (Negative)
[2022-04-09 11:53] LABS: COVID-19 CEPHEID 4-PLEX PCR Negative (Negative)
== END ==
PROVIDERS: PCP Family Medicine; Visit Provider Nurse Practitioner Family
DX: R05.9 Cough, unspecified (principal); R50.9 Fever, unspecified
CPT/HCPCS: 0241U

== ENCOUNTER → 2022-08-27 08:16 | Outpatient (CLI) | payer OTHER, SELFPAY ==
[2022-08-27 10:17] LABS: Add Manual Diff / Slide Review NO; Basophils Absolute Auto 0 /uL (0-100); Basophils Percent Auto 0.7 % (0-2); Eosinophils Absolute Auto 100 /uL (0-450); Eosinophils Percent Auto 2.2 % (2-4); Hematocrit 36.2 % (36-46); Hemoglobin 12.6 g/dL (12.0-16.0); Lymphocytes Absolute Auto 1100 /uL (1100-4500); Lymphocytes Percent Auto 20.2 % (25-40); Mean Corpuscular HGB Conc 34.8 % (30-36); Mean Corpuscular Hemoglobin 27.7 PG (26-34); Mean Corpuscular Volume 79.7 fL (80-100); Monocytes Absolute Auto 300 /uL (0-900); Monocytes Percent Auto 6.5 % (3-14); Neutrophils Absolute Auto 3700 /uL (1500-7000); Neutrophils Percent Auto 70.4 % (50-75); Platelet Count 213 X10^3/uL (150-400); Red Blood Cell Count 4.54 X10^6/uL (4.0-5.2); Red Cell Distribution Width 14.6 % (11.6-14.8); White Blood Cell Count 5.2 X10^3/uL (4.5-11.0)
[2022-08-27 11:02] LABS: HEMOLYSIS < 15 (0-50)
[2022-08-27 11:03] LABS: Alanine Aminotransferase 20 IU/L (<35); Albumin 4.3 g/dL (3.5-5.0); Albumin Globulin Ratio 1.5 (1.0-2.8); Alkaline Phosphatase 63 U/L (38-126); Aspartate Aminotransferase 25 IU/L (14-36); BUN Creatinine Ratio 14.9 (6-22); Bilirubin Total 0.5 mg/dL (0.2-1.3); Blood Urea Nitrogen 13 mg/dL (7-17); Calcium 9.1 mg/dL (8.4-10.2); Carbon Dioxide 26 mmol/L (22-32); Chloride 103 mmol/L (98-107); Cholesterol 162 mg/dL (140-199); Estimated Glomerular Filt Rate > 60 mL/min (>60); Globulin 2.8 g/dL (1.7-4.1); Glucose 97 mg/dL (70-100); HDL Cholesterol 45 mg/dL (40-60); LDL Cholesterol Calculated 94 mg/dL (<100); Sodium 138 mmol/L (137-145); Total Protein 7.1 g/dL (6.3-8.2); Triglycerides 116 mg/dL (35-150)
[2022-08-27 11:07] LABS: Free T3, Triiodothyronine Free 3.51 pg/mL (2.77-5.27)
[2022-08-27 11:38] LABS: Vitamin B12 506 pg/mL (239-931)
[2022-08-28 09:51] LABS: Thyroid Peroxidase Antibodies 15 IU/mL (0-34)
[2022-08-28 10:58] LABS: Ferritin 20 ng/mL (6-137)
== END ==
PROVIDERS: PCP Naturopath; Referring Provider Naturopath; Visit Provider Naturopath
DX: Z00.00 Encounter for general adult medical examination without abnormal findings (principal)
CPT/HCPCS: 36415; 80053; 80061; 82607; 82728; 84439; 84443; 84481; 85025; 86376

== ENCOUNTER → 2022-12-17 09:04 | Outpatient (CLI) | payer OTHER, SELFPAY ==
[2022-12-17 10:50] LABS: HEMOLYSIS < 15 (0-50); Iron 103 ug/dL (37-170)
[2022-12-17 10:52] LABS: Glucose 94 mg/dL (70-100)
[2022-12-17 11:04] LABS: Percent Iron Saturation 30 % (15-50); Total Iron Binding Capacity 348 ug/dL (265-497); Transferrin 255 mg/dL (206-381)
[2022-12-17 11:25] LABS: Ferritin 19 ng/mL (6-137)
[2022-12-17 12:12] LABS: Hemoglobin A1C% w Est Avg Glu 4.6 % (4.0-6.0)
[2022-12-19 07:08] LABS: Insulin Level Total 10.8 uIU/mL (2.6-24.9)
== END ==
PROVIDERS: PCP Naturopath; Referring Provider Naturopath; Visit Provider Naturopath
DX: E61.1 Iron deficiency (principal); G47.00 Insomnia, unspecified; R73.09 Other abnormal glucose
CPT/HCPCS: 36415; 82728; 82947; 83036; 83525; 83540; 83550

== ENCOUNTER → 2023-02-15 10:03 | Outpatient (CLI) | payer OTHER, SELFPAY ==
[2023-02-15 11:13] LABS: COVID-19 CEPHEID 4-PLEX PCR Negative (Negative); Influenza A - CEPHEID Flu A NEGATIVE (NEGATIVE); Influenza B - CEPHEID Flu B NEGATIVE (NEGATIVE); Respiratory Syncytial Virus Negative (Negative)
== END ==
PROVIDERS: PCP Naturopath; Visit Provider Student in an Organized Health Care Education/Training Program
DX: J02.9 Acute pharyngitis, unspecified (principal); R09.81 Nasal congestion; R53.81 Other malaise
CPT/HCPCS: 0241U

== ENCOUNTER → 2023-03-07 15:41 | Outpatient (CLI) | payer OTHER, SELFPAY ==
[2023-03-07 17:31] LABS: Ferritin 45 ng/mL (6-137)
[2023-03-07 17:33] LABS: Hematocrit 36.5 % (36-46); Hemoglobin 12.9 g/dL (12.0-16.0); Mean Corpuscular HGB Conc 35.4 % (30-36); Mean Corpuscular Hemoglobin 28.7 PG (26-34); Platelet Count 197 X10^3/uL (150-400); Red Blood Cell Count 4.51 X10^6/uL (4.0-5.2); Red Cell Distribution Width 14.1 % (11.6-14.8); White Blood Cell Count 7.6 X10^3/uL (4.5-11.0)
== END ==
PROVIDERS: PCP Naturopath; Referring Provider Naturopath; Visit Provider Naturopath
DX: E61.1 Iron deficiency (principal)
CPT/HCPCS: 36415; 82728; 85027

== ENCOUNTER → 2023-03-25 14:25 | Outpatient (CLI) | payer OTHER, SELFPAY | PROVIDERS: PCP Naturopath; Referring Provider Obstetrics & Gynecology; Visit Provider Obstetrics & Gynecology | DX: N95.1 Menopausal and female climacteric states (principal) | CPT/HCPCS: 36415 ==

== ENCOUNTER → 2023-07-29 09:34 | Outpatient (CLI) | payer OTHER, SELFPAY | PROVIDERS: PCP Naturopath; Visit Provider Nurse Practitioner Family | DX: F22 Delusional disorders (principal); R30.0 Dysuria | CPT/HCPCS: 87086; 87210 ==

== ENCOUNTER → 2023-08-29 12:28 | Outpatient (CLI) | payer OTHER, SELFPAY ==
[2023-08-30 16:20] LABS: Influenza A - CEPHEID Flu A NEGATIVE (NEGATIVE); Influenza B - CEPHEID Flu B NEGATIVE (NEGATIVE); Respiratory Syncytial Virus Negative (Negative)
[2023-08-30 16:22] LABS: COVID-19 CEPHEID 4-PLEX PCR Negative (Negative)
== END ==
PROVIDERS: PCP Family Medicine; Visit Provider Family Medicine
DX: R05.9 Cough, unspecified (principal); R09.81 Nasal congestion
CPT/HCPCS: 0241U

== ENCOUNTER → 2023-08-29 13:06 | Outpatient (CLI) | payer OTHER, SELFPAY ==
--- NOTE | 2023-08-29 13:07 | DI.RAD.S_ITS ---
PROCEDURE: XR CHEST 2V INDICATIONS: cough TECHNIQUE: 2 views of the chest were acquired. COMPARISON: None. FINDINGS: Surgical changes and devices: None. Lungs and pleura: Lungs are clear. No pleural effusions or pneumothorax. Mediastinum: Mediastinal contours are normal. Heart size is normal. Bones and chest wall: No suspicious bony abnormalities. Soft tissues appear unremarkable. IMPRESSION: No acute cardiopulmonary pathology. Dictated by: Jovan Alejandro M.D. on 08/29/2023 at 13:57 Approved by: Jovan Alejandro M.D. on 08/29/2023 at 13:57
== END ==
PROVIDERS: PCP Family Medicine; Referring Provider Family Medicine; Visit Provider Family Medicine
DX: R05.9 Cough, unspecified (principal); R09.81 Nasal congestion
CPT/HCPCS: 0241U; 71046

== ENCOUNTER 2023-10-19 16:28 | Emergency (ER) | payer OTHER, SELFPAY ==
[2023-10-19 16:37] VITALS: BP 126/88; PULSE 85; RESP 18; TEMP 36.8; O2SAT 97; BMI 30.7
--- NOTE | 2023-10-19 16:50 | DI.US.S_ITS ---
PROCEDURE: US PELVIC COMPLETE INDICATIONS: Midline abdominal pain concern for ovarian cyst TECHNIQUE: Real-time scanning was performed of the pelvic organs, with image documentation. Additional endovaginal scanning was necessary due to incomplete visualization of the adnexal and endometrial structures by transabdominal scanning. COMPARISON: None. FINDINGS: Uterus: Uterus is anteverted and normal in size at 9.0 x 3.6 x 5.0 cm. The myometrium is mildly heterogeneous but without dominant mass. The endometrium measures 2.7 mm combined thickness. Small nabothian cysts present in the cervix. Ovaries: The right ovary measures 3.7 x 2.6 x 1.6 cm, with a calculated ovarian volume of 7.7 cc. The left ovary measures 6.3 x 2.8 x 4.8 cm, with a calculated ovarian volume of 44.3 cc. The ovaries have a normal sonographic appearance. There is a vascular cyst with lace-like internal echoes suggesting hemorrhagic cyst. No adnexal masses are seen. Other: No pathologic free abdominal or pelvic fluid. IMPRESSION: Hemorrhagic left ovarian cyst. Mildly heterogeneous uterus without dominant mass. We strive to produce accurate, complete, and clear reports of imaging services. To assist us in improving patient care, this report was composed using standard report templates and voice recognition software. Therefore, it may contain abnormal punctuation, insertions and/or omissions. Occasional wrong-word or sound-alike substitutions may occur. Though we review the report and make efforts to correct it, we do recommend that the report be read carefully in proper context to recognize any text inaccuracies. Dictated by: Akiko Barbosa M.D. on 10/19/2023 at 19:41 Approved by: Akiko Barbosa M.D. on 10/19/2023 at 19:43
[2023-10-19 17:14] LABS: Add Manual Diff / Slide Review NO; Basophils Absolute Auto 0 /uL (0-100); Basophils Percent Auto 0.5 % (0-2); Eosinophils Absolute Auto 100 /uL (0-450); Eosinophils Percent Auto 1.6 % (2-4); Hematocrit 37.9 % (36-46); Hemoglobin 13.3 g/dL (12.0-16.0); Lymphocytes Absolute Auto 1500 /uL (1100-4500); Lymphocytes Percent Auto 19.3 % (25-40); Mean Corpuscular HGB Conc 35.2 % (30-36); Mean Corpuscular Hemoglobin 28.5 PG (26-34); Mean Corpuscular Volume 81.1 fL (80-100); Monocytes Absolute Auto 400 /uL (0-900); Monocytes Percent Auto 5.5 % (3-14); Neutrophils Absolute Auto 5800 /uL (1500-7000); Neutrophils Percent Auto 73.1 % (50-75); Platelet Count 205 X10^3/uL (150-400); Red Blood Cell Count 4.67 X10^6/uL (4.0-5.2); Red Cell Distribution Width 13.7 % (11.6-14.8); White Blood Cell Count 7.9 X10^3/uL (4.5-11.0)
[2023-10-19 17:23] LABS: Alanine Aminotransferase 16 IU/L (<35); Albumin 4.6 g/dL (3.5-5.0); Albumin Globulin Ratio 1.6 (1.0-2.8); Alkaline Phosphatase 68 U/L (38-126); Aspartate Aminotransferase 23 IU/L (14-36); BUN Creatinine Ratio 12.9 (6-22); Bilirubin Total 0.6 mg/dL (0.2-1.3); Blood Urea Nitrogen 12 mg/dL (7-17); Calcium 9.3 mg/dL (8.4-10.2); Carbon Dioxide 24 mmol/L (22-32); Chloride 105 mmol/L (98-107); Estimated Glomerular Filt Rate > 60 mL/min (>60); Globulin 2.9 g/dL (1.7-4.1); Glucose 103 mg/dL (70-100); HEMOLYSIS < 15 (0-50); Lipase 67 U/L (23-300); Potassium 4.1 mmol/L (3.4-5.1); Sodium 137 mmol/L (137-145); Total Protein 7.5 g/dL (6.3-8.2)
--- NOTE | 2023-10-19 18:01 | PC.NURSE ---
IV placed by another nurse.
--- NOTE | 2023-10-19 18:24 | ED.ABDPAIN ---
HPI - Abdominal Pain General Chief Complaint: Abdominal Pain Stated Complaint: abd pain Time Seen by Provider: 10/19/23 16:50 Source: patient Mode of arrival: Ambulatory History of Present Illness HPI narrative: Patient is a 33-year-old female history of PCOS fibromyalgia presenting today with lower abdominal pain. Kind of cramping all across she also reports some rectal pain last night but that has subsided. She is reports that last night it really hurt to walk. She is more painful on her right side than her left side. She was a little nauseous no vomiting no fever. No painful or frequent urination no back pain Related Data Home Medications Medication Instructions Recorded Confirmed Fish Oil PO 12/16/20 09/13/23 Naltrexone Low Dose 5 mg PO DAILY 12/16/20 09/13/23 Vitamin D3 PO 12/16/20 09/13/23 cetirizine 10 mg tablet 10 mg PO DAILY 03/26/21 09/13/23 magnesium mal, threon, chelate PO 08/08/23 09/13/23 Previous Rx's Medication Instructions Recorded albuterol sulfate 90 mcg/actuation 2 puff inhalation Q6H PRN 04/09/22 aerosol inhaler shortness of breath or wheezing #6.7 grams inhalational spacing device #1 ea 04/09/22 (Aerochamber MV spacer) DHEA 25 mg PO .am #90 tabs 08/08/23 progesterone micronized 200 mg 200 mg PO BEDTIME #90 caps 08/08/23 capsule (Prometrium) inhalational spacing device #1 ea 08/29/23 (Aerochamber MV spacer) acyclovir 800 mg tablet 400 mg (1/2 x 800 mg) PO BID #30 09/06/23 tabs Allergies Allergy/AdvReac Type Severity Reaction Status Date / Time iodine AdvReac hives Verified 09/13/23 08:35 Patient History Medical History Chronic tonsillitis Chronic sinusitis IBS (irritable bowel syndrome) [place] disease (1998) Surgical History History of tonsillectomy History of lung biopsy (1998) Social History household members: spouse Smoking Status: Never smoker alcohol intake: never Smoking Status: Never smoker alcohol intake frequency: other Substance Use Type: marijuana Exam Initial Vital Signs Initial Vital Signs: Vital Signs Temperature 98.3 F 10/19/23 16:37 Pulse Rate 85 10/19/23 16:37 Respiratory Rate 18 10/19/23 16:37 Blood Pressure 126/88 10/19/23 16:37 Pulse Oximetry 97 10/19/23 16:37 Oxygen Delivery Method Room Air 10/19/23 16:37 GENERAL: Alert 33-year-old female and in no acute distress. HEENT: Head atraumatic,EOMI, pupils reactive, face symmetric, moist mucous membranes CARDIOVASCULAR: Regular rate and rhythm without murmurs, rubs or gallops. RESPIRATORY: Breath sounds equal bilaterally, no wheezes rales or rhonchi. ABDOMEN: Soft, tender across lower abdomen more on right than left mild suprapubic pain as well : No CVA tenderness EXTREMITIES: Normal range of motion, no clubbing or edema. Neurovascularly intact NEUROLOGICAL: Alert and oriented x4.Normal gait and speech. SKIN: Warm, dry, no laceration, no petechiae, no rashes or lesions. Course Orders Ordered: ED Orders 10/19/23 19:25 CT abdomen pelvis w con Stat Discontinued Medications Diphenhydramine HCl (Diphenhydramine 50 Mg/Ml Vial) 25 mg IV NOW ONE Stop: 10/19/23 19:39 Last Admin: 10/19/23 19:43 Dose: 25 mg Documented By: VIDAL Ketorolac Tromethamine (Ketorolac 30 Mg/Ml Vial) 15 mg IV NOW ONE Stop: 10/19/23 19:26 Last Admin: 10/19/23 19:43 Dose: 15 mg Documented By: VIDAL Methylprednisolone (Methylprednisolone 125 Mg/2 Ml Vial) 125 mg IV NOW ONE Stop: 10/19/23 19:39 Last Admin: 10/19/23 19:42 Dose: 125 mg Documented By: VIDAL Ondansetron HCl (Ondansetron 4 Mg/2 Ml Inj) 4 mg IV NOW PRN PRN Reason: Nausea And Vomiting Ondansetron HCl (Ondansetron 4 Mg Odt) 4 mg PO NOW PRN PRN Reason: Nausea And Vomiting Vital Signs Vital signs: Vital Signs - 8 hr 10/19/23 21:01 Pulse Rate 68 Respiratory Rate 14 Blood Pressure 122/78 Pulse Oximetry 99 Oxygen Delivery Method Room Air MDM - Abdominal Pain Lab Data 10/19/23 17:00 10/19/23 17:00 Labs: Lab Results 10/19/23 10/19/23 Range/Units 17:00 18:22 WBC 7.9 (4.5-11.0) X10^3/uL RBC 4.67 (4.0-5.2) X10^6/uL Hgb 13.3 (12.0-16.0) g/dL Hct 37.9 (36-46) % MCV 81.1 (80-100) fL MCH 28.5 (26-34) PG MCHC 35.2 (30-36) % RDW 13.7 (11.6-14.8) % Plt Count 205 (150-400) X10^3/uL Neut % (Auto) 73.1 (50-75) % Lymph % (Auto) 19.3 L (25-40) % Hardy % (Auto) 5.5 (3-14) % Eos % (Auto) 1.6 L (2-4) % Baso % (Auto) 0.5 (0-2) % Neut # (Auto) 5800 (3835-5506) /uL Lymph # (Auto) 1500 (1497-2451) /uL Hardy # (Auto) 400 (0-900) /uL Eos # (Auto) 100 (0-450) /uL Baso # (Auto) 0 (0-100) /uL Sodium 137 (137-145) mmol/L Potassium 4.1 (3.4-5.1) mmol/L Chloride 105 (98-107) mmol/L Carbon Dioxide 24 (22-32) mmol/L BUN 12 (7-17) mg/dL Creatinine 0.93 (0.52-1.04) mg/dL Estimated GFR > 60 (>60) mL/min BUN/Creatinine Ratio 12.9 (6-22) Glucose 103 H (70-100) mg/dL Calcium 9.3 (8.4-10.2) mg/dL Total Bilirubin 0.6 (0.2-1.3) mg/dL AST 23 (14-36) IU/L ALT 16 (<35) IU/L Alkaline Phosphatase 68 (38-126) U/L Total Protein 7.5 (6.3-8.2) g/dL Albumin 4.6 (3.5-5.0) g/dL Globulin 2.9 (1.7-4.1) g/dL Albumin/Globulin Ratio 1.6 (1.0-2.8) Lipase 67 (23-300) U/L Urine RBC None seen (0-5/HPF) Urine WBC 0-1/hpf (0-5/HPF) Ur Squamous Epith Cells 1-5 /hpf (0-5/HPF) Urine Bacteria Few (2-10) H (None) Ur Culture Indicated? Cult not indicated Vol Urine Centrifuged 10ml (spun) Point of care testing: Point of Care Testing Test Results Negative Urine Dip Bedside Urine Glucose Negative Bedside Urine Bilirubin - Negative Bedside Urine Ketone - Negative Urine Specific [place] 1.015 Bedside Urine Occult Blood - Negative Bedside Urine pH 6.5 Bedside Urine Protein - Negative Bedside Urine Urobilinogen - Negative Bedside Urine Nitrite - Negative Bedside Urine Leukocytes +/- 15 Esterase Imaging Data US - REAL ESTATE ADMINISTRATOR: Radiologist's Impression: PROCEDURE: US PELVIC COMPLETE INDICATIONS: Midline abdominal pain concern for ovarian cyst TECHNIQUE: Real-time scanning was performed of the pelvic organs, with image documentation. Additional endovaginal scanning was necessary due to incomplete visualization of the adnexal and endometrial structures by transabdominal scanning. COMPARISON: None. FINDINGS: Uterus: Uterus is anteverted and normal in size at 9.0 x 3.6 x 5.0 cm. The myometrium is mildly heterogeneous but without dominant mass. The endometrium measures 2.7 mm combined thickness. Small nabothian cysts present in the cervix. Ovaries: The right ovary measures 3.7 x 2.6 x 1.6 cm, with a calculated ovarian volume of 7.7 cc. The left ovary measures 6.3 x 2.8 x 4.8 cm, with a calculated ovarian volume of 44.3 cc. The ovaries have a normal sonographic appearance. There is a vascular cyst with lace-like internal echoes suggesting hemorrhagic cyst. No adnexal masses are seen. Other: No pathologic free abdominal or pelvic fluid. IMPRESSION: Hemorrhagic left ovarian cyst. Mildly heterogeneous uterus without dominant mass. We strive to produce accurate, complete, and clear reports of imaging services. To assist us in improving patient care, this report was composed using standard report templates and voice recognition software. Therefore, it may contain abnormal punctuation, insertions and/or omissions. Occasional wrong-word or sound-alike substitutions may occur. Though we review the report and make efforts to correct it, we do recommend that the report be read carefully in proper context to recognize any text inaccuracies. Dictated by: Akiko Barbosa M.D. on 10/19/2023 at 19:41 CT scan - abdomen/pelvis: Radiologist's Impression: PROCEDURE: CT ABDOMEN PELVIS W CON INDICATIONS: right lower quad pain TECHNIQUE: After the administration of intravenous contrast, axial sections acquired from the lung bases to the pubic symphysis. Coronal and sagittal reformats were performed. For radiation dose reduction, the following was used: automated exposure control, adjustment of mA and/or kV according to patient size. COMPARISON: [facility], CT, CT ABDOMEN PELVIS WO CON, 06/30/2021, 16:44. FINDINGS: Image quality: Diagnostic Lower chest: Partially seen possible left lower lobe calcified granuloma. No pleural effusions. Basal atelectasis. Liver: Unremarkable Gallbladder and biliary system: Unremarkable, nondilated Pancreas: No ductal dilation Spleen: Enlarged at 14-15 cm Adrenals: No discrete nodules Kidneys: No solid mass or hydronephrosis Vessels and lymph nodes: The main portal vein is patent. No abdominal aortic aneurysm. No pathologic lymph nodes by size criteria. Bowel and peritoneum: No evidence of small bowel obstruction. No drainable abscess. No pathologic ascites. Moderate fecal loading in the proximal colon. The appendix is nondilated. Prominent fluid-filled distal loops of small bowel is seen. Body wall: Small fat containing umbilical hernia Pelvis: Bilateral ovarian cysts, larger on the left measuring up to 4.5 cm, seen in 2021. Intermediate density, possible complex material seen on the right. Small amount pelvic free fluid is present. The bladder appears unremarkable Bones: No acute or suspicious osseous finding. IMPRESSION: The appendix is normal diameter. Moderate fecal loading in the proximal colon. No small bowel obstruction. Bilateral ovarian cysts, possibly containing intermediate density structures and possibly with septations, larger on the left. The left-sided cysts was seen in 2021. Consider pelvic ultrasound to further evaluate if there is concern for pelvic pathology. There is a small amount pelvic free fluid which may be physiologic. Splenomegaly. Other findings as above. Dictated by: Antonio Abreu M.D. on 10/19/2023 at 20:18 MDM Narrative Medical decision making narrative: Patient healthy 33-year-old presenting today with lower abdominal pain. History of PCOS but no known ovarian cyst. On exam mildly tender but not an acute abdomen Blood work has been reviewed no clinical significant abnormality no leukocytosis LICHA electrolyte abnormalities urinalysis negative for and UTI Ultrasound does show a left hemorrhagic ovarian cyst CT does not show cause of abdominal pain appendix is normal no evidence diverticulitis or obstruction but does confirm bilateral ovarian cysts Patient has history of PCOS she has cysts on her ovaries is may or may not be causing her pain. She has feeling a lot better after Toradol. At this time no need for any further workup or intervention. Discharge Plan Departure Patient Disposition: Home Clinical Impression: Ovarian cyst Instructions: DI for Ovarian Cyst Activity Restrictions/Additional Instructions: *You have been diagnosed with ovarian cyst *What to do: At this time pain may be related to ovarian cyst CT overall reassuring *Continue to take medications as directed Tylenol Motrin as needed for pain *Follow up with your primary care provider in 2-3 days or call [phone] *Return to ER if you should have increasing pain nausea vomiting or any new, worsening or concerning symptoms Prescriptions: No Action albuterol sulfate 90 mcg/actuation HFA aerosol inhaler 2 puff inhalation Q6H PRN (Reason: shortness of breath or wheezing) Qty: 6.7 0RF (DME) Aerochamber MV Spacer See Rx Instructions .ROUTE .MEDSUPPLY Qty: 1 0RF Rx Instructions: As directed acyclovir 800 mg tablet 400 mg PO BID Qty: 30 2RF Naltrexone Low Dose 5 mg 5 mg PO DAILY Fish Oil PO Vitamin D3 PO magnesium mal, threon, chelate PO progesterone micronized [Prometrium] 200 mg capsule 200 mg PO BEDTIME Qty: 90 1RF Rx Instructions: Take nightly for 3 months initially, remote computer terminal operator switch to taking nightly 21 nights, then pause 7 nights to let receptors re-sensitize. ok to double if not getting desired relaxation and sleep DHEA 25 mg PO .am Qty: 90 0RF (DME) Aerochamber MV Spacer See Rx Instructions .Route Qty: 1 0RF Rx Instructions: As directed cetirizine 10 mg Tablet 10 mg PO DAILY Referrals: Melba Alcaraz DO [Primary Care Provider] - Stand Alone Forms: Patient Portal/API
--- NOTE | 2023-10-19 19:25 | DI.CT.S_ITS ---
PROCEDURE: CT ABDOMEN PELVIS W CON INDICATIONS: right lower quad pain TECHNIQUE: After the administration of intravenous contrast, axial sections acquired from the lung bases to the pubic symphysis. Coronal and sagittal reformats were performed. For radiation dose reduction, the following was used: automated exposure control, adjustment of mA and/or kV according to patient size. COMPARISON: [facility], CT, CT ABDOMEN PELVIS WO CON, 06/30/2021, 16:44. FINDINGS: Image quality: Diagnostic Lower chest: Partially seen possible left lower lobe calcified granuloma. No pleural effusions. Basal atelectasis. Liver: Unremarkable Gallbladder and biliary system: Unremarkable, nondilated Pancreas: No ductal dilation Spleen: Enlarged at 14-15 cm Adrenals: No discrete nodules Kidneys: No solid mass or hydronephrosis Vessels and lymph nodes: The main portal vein is patent. No abdominal aortic aneurysm. No pathologic lymph nodes by size criteria. Bowel and peritoneum: No evidence of small bowel obstruction. No drainable abscess. No pathologic ascites. Moderate fecal loading in the proximal colon. The appendix is nondilated. Prominent fluid-filled distal loops of small bowel is seen. Body wall: Small fat containing umbilical hernia Pelvis: Bilateral ovarian cysts, larger on the left measuring up to 4.5 cm, seen in 2021. Intermediate density, possible complex material seen on the right. Small amount pelvic free fluid is present. The bladder appears unremarkable Bones: No acute or suspicious osseous finding. IMPRESSION: The appendix is normal diameter. Moderate fecal loading in the proximal colon. No small bowel obstruction. Bilateral ovarian cysts, possibly containing intermediate density structures and possibly with septations, larger on the left. The left-sided cysts was seen in 2021. Consider pelvic ultrasound to further evaluate if there is concern for pelvic pathology. There is a small amount pelvic free fluid which may be physiologic. Splenomegaly. Other findings as above. Dictated by: Antonio Abreu M.D. on 10/19/2023 at 20:18 Approved by: Antonio Abreu M.D. on 10/19/2023 at 20:23
[2023-10-19] MEDS: methylPREDNISolone 125 MG/2 ML VIAL IV (19:42)
[2023-10-19] MEDS: diphenhydrAMINE 50 MG/ML VIAL 25 MG IV (19:43)
[2023-10-19] MEDS: KETOROLAC 30 MG/ML VIAL 15 MG IV (19:43)
[2023-10-19 20:21] LABS: Bacteria Urine Few (2-10); Culture Indicated Urine Cult Not Indicated; RBC Urine None Seen (0-5/HPF); Squamous Epithelial Cell Urine 1-5 /HPF (0-5/HPF); Urine Volume 10mL (spun); WBC Urine 0-1/HPF (0-5/HPF)
[2023-10-19 21:01] VITALS: BP 122/78; PULSE 68; RESP 14; O2SAT 99
== END 2023-10-19 21:03 | disposition home or self-care (01) ==
PROVIDERS: Emergency Medicine; Emergency Provider Emergency Medicine; PCP Family Medicine
DX: N83.202 Unspecified ovarian cyst, left side (principal)
CPT/HCPCS: 36415; 74177; 76856; 80053; 81003; 81015; 81025; 83690; 85025; 96374; 96375; 99284; J1200; J1885; J2919; Q9967

== ENCOUNTER → 2023-12-12 12:05 | Outpatient (CLI) | payer OTHER, SELFPAY ==
[2023-12-12 13:07] LABS: UR Morphine/Opiate cutoff 300 Negative (Negative); Ur Creatinine Normal (Normal); Ur Specific Gravity Normal (Normal); Urine Amphetamines Negative (Negative); Urine Barbiturates Negative (Negative); Urine Benzodiazepines Negative (Negative); Urine Cocaine Negative (Negative); Urine MDMA Negative (Negative); Urine Methadone Negative (Negative); Urine Methamphetamines Negative (Negative); Urine Oxycodone Negative (Negative); Urine Phencyclidine Negative (Negative); Urine Tetrahydrocannabinol Negative (Negative); Urine Tricyclic Antidepressant Negative (Negative); Urine pH Normal (Normal)
[2023-12-12 13:19] LABS: HEMOLYSIS < 15 (0-50); Iron 72 ug/dL (37-170)
[2023-12-12 13:31] LABS: Percent Iron Saturation 20 % (15-50); Total Iron Binding Capacity 352 ug/dL (265-497); Transferrin 276 mg/dL (206-381)
[2023-12-12 16:27] LABS: Vitamin D 25 Hydroxy (D3) 76.9 ng/mL (30.0-100.0)
[2023-12-13 07:36] LABS: C Peptide 3.9 ng/mL (1.1-4.4); Insulin Level Total 19.9 uIU/mL (2.6-24.9)
== END ==
PROVIDERS: PCP Family Medicine; Referring Provider Physician Assistant; Visit Provider Physician Assistant
DX: E28.2 Polycystic ovarian syndrome (principal); E74.39 Other disorders of intestinal carbohydrate absorption; N95.1 Menopausal and female climacteric states; G89.29 Other chronic pain; M79.7 Fibromyalgia; E55.9 Vitamin D deficiency, unspecified; D50.9 Iron deficiency anemia, unspecified
CPT/HCPCS: 36415; 80305; 82306; 83525; 83540; 83550; 84402; 84681

== ENCOUNTER → 2023-12-21 08:09 | Outpatient (CLI) | payer OTHER, SELFPAY ==
[2023-12-21 09:49] LABS: Add Manual Diff / Slide Review NO; Basophils Absolute Auto 0 /uL (0-100); Basophils Percent Auto 0.4 % (0-2); Eosinophils Absolute Auto 100 /uL (0-450); Eosinophils Percent Auto 1.9 % (2-4); Hemoglobin 13.5 g/dL (12.0-16.0); Lymphocytes Absolute Auto 1400 /uL (1100-4500); Lymphocytes Percent Auto 21.8 % (25-40); Mean Corpuscular HGB Conc 34.7 % (30-36); Mean Corpuscular Hemoglobin 28.2 PG (26-34); Mean Corpuscular Volume 81.3 fL (80-100); Monocytes Absolute Auto 400 /uL (0-900); Monocytes Percent Auto 6.8 % (3-14); Neutrophils Absolute Auto 4400 /uL (1500-7000); Neutrophils Percent Auto 69.1 % (50-75); Platelet Count 190 X10^3/uL (150-400); Red Cell Distribution Width 13.8 % (11.6-14.8); White Blood Cell Count 6.3 X10^3/uL (4.5-11.0)
[2023-12-21 10:18] LABS: Alanine Aminotransferase 16 IU/L (<35); Albumin 4.5 g/dL (3.5-5.0); Alkaline Phosphatase 63 U/L (38-126); Aspartate Aminotransferase 24 IU/L (14-36); BUN Creatinine Ratio 15.7 (6-22); Bilirubin Total 0.7 mg/dL (0.2-1.3); Blood Urea Nitrogen 16 mg/dL (7-17); Calcium 9.6 mg/dL (8.4-10.2); Carbon Dioxide 26 mmol/L (22-32); Chloride 102 mmol/L (98-107); Cholesterol 168 mg/dL (140-199); Estimated Glomerular Filt Rate > 60 mL/min (>60); Globulin 2.3 g/dL (1.7-4.1); Glucose 91 mg/dL (70-100); HDL Cholesterol 37 mg/dL (40-60); HEMOLYSIS < 15 (0-50); LDL Cholesterol Calculated 101 mg/dL (<100); Sodium 138 mmol/L (137-145); Total Protein 6.8 g/dL (6.3-8.2); Triglycerides 150 mg/dL (35-150)
[2023-12-21 10:34] LABS: Progesterone, Total 1.08 ng/mL
[2023-12-21 10:35] LABS: Prolactin 11.7 ng/mL (3.0-18.6)
[2023-12-21 10:50] LABS: Estradiol, Total 65.6 pg/mL
[2023-12-21 10:51] LABS: Testosterone 34.4 ng/dL (5.71-77.0)
== END ==
LOC: LAB 08:12
PROVIDERS: PCP Family Medicine
DX: Z13.220 Encounter for screening for lipoid disorders (principal); F64.9 Gender identity disorder, unspecified; E34.9 Endocrine disorder, unspecified; E28.2 Polycystic ovarian syndrome
CPT/HCPCS: 36415; 80053; 80061; 82670; 84144; 84146; 84403; 85025

== ENCOUNTER → 2024-02-08 07:09 | Outpatient (CLI) | payer OTHER, SELFPAY ==
[2024-02-08 09:03] LABS: Testosterone 193 ng/dL (5.71-77.0)
== END ==
PROVIDERS: PCP Family Medicine; Referring Provider Naturopath; Visit Provider Naturopath
DX: F64.9 Gender identity disorder, unspecified (principal)
CPT/HCPCS: 36415; 82670; 84403

== ENCOUNTER → 2024-05-17 07:57 | Outpatient (CLI) | payer OTHER, SELFPAY ==
[2024-05-17 10:08] LABS: Estradiol, Total 73.4 pg/mL
[2024-05-17 10:11] LABS: Testosterone 142 ng/dL (5.71-77.0)
== END ==
LOC: LAB 07:58
PROVIDERS: PCP Family Medicine; Referring Provider Naturopath; Visit Provider Naturopath
DX: E34.9 Endocrine disorder, unspecified (principal)
CPT/HCPCS: 36415; 82670; 84403

== ENCOUNTER → 2024-06-13 16:26 | Outpatient (CLI) | payer OTHER, SELFPAY ==
[2024-06-13 17:38] LABS: Estradiol, Total 39.9 pg/mL
[2024-06-13 17:46] LABS: Testosterone 190 ng/dL (5.71-77.0)
== END ==
PROVIDERS: PCP Family Medicine; Referring Provider Naturopath; Visit Provider Naturopath
DX: E34.9 Endocrine disorder, unspecified (principal)
CPT/HCPCS: 36415; 82670; 84403

== ENCOUNTER → 2024-07-17 12:47 | Outpatient (CLI) | payer OTHER, SELFPAY ==
[2024-07-17 14:30] LABS: Thyroid Stimulating Hormone 0.871 uIU/mL (0.47-4.68)
[2024-07-17 14:34] LABS: Ferritin 18 ng/mL (6-137)
[2024-07-17 15:06] LABS: Folate 3.2 ng/mL (2.76-20.0); Vitamin B12 458 pg/mL (239-931)
[2024-07-19 23:39] LABS: Methylmalonic Acid,Serum 147 nmol/L (0-378)
[2024-07-20 04:41] LABS: Intrinsic Factor Blocking Aby 0.9 AU/mL (0.0-1.1)
== END ==
PROVIDERS: PCP Naturopath; Referring Provider Naturopath; Visit Provider Naturopath
DX: R53.83 Other fatigue (principal); R20.2 Paresthesia of skin
CPT/HCPCS: 36415; 82607; 82728; 82746; 83921; 84443; 86340

== ENCOUNTER → 2024-07-19 17:48 | Outpatient (CLI) | payer OTHER, SELFPAY ==
[2024-07-21 03:36] LABS: Homocysteine 35.4 umol/L (0.0-14.5)
== END ==
PROVIDERS: PCP Naturopath; Referring Provider Naturopath; Visit Provider Naturopath
DX: R53.83 Other fatigue (principal); M79.10 Myalgia, unspecified site; R20.2 Paresthesia of skin
CPT/HCPCS: 36415; 83090; 83516

== ENCOUNTER → 2024-07-25 12:06 | Outpatient (CLI) | payer OTHER, SELFPAY | PROVIDERS: PCP Naturopath; Referring Provider Naturopath; Visit Provider Naturopath | DX: R53.83 Other fatigue (principal); E72.19 Other disorders of sulfur-bearing amino-acid metabolism; R79.83 Abnormal findings of blood amino-acid level | CPT/HCPCS: 36415; 81291 ==

== ENCOUNTER 2024-09-14 12:16 | Emergency (ER) | payer OTHER, SELFPAY ==
[2024-09-14 12:28] VITALS: BP 144/94; PULSE 90; RESP 17; TEMP 35.9; O2SAT 100; BMI 29.4
--- NOTE | 2024-09-14 12:33 | EKG_ITS ---
[address] [address] Test Date: 2024-09-14 Pat Name: Faina Jamil Department: Room: Gender: Female Banquet Steward: SURY : 1990 Requested By: Order Number: [id number] Reading MD: Sukhwinder Norwood Measurements Intervals Moore Rate: 82 P: 43 IN: 130 QRS: 23 QRSD: 84 T: 42 QT: 346 QTc: 404 Interpretive Statements Normal sinus rhythm Electronically Signed On 09-15-2024 16:24:19 PDT by Sukhwinder Norwood
--- NOTE | 2024-09-14 12:38 | DI.RAD.S_ITS ---
PROCEDURE: XR CHEST 1V INDICATIONS: Chest Pain TECHNIQUE: One view of the chest was acquired. COMPARISON: [facility], CR, XR CHEST 2V, 08/29/2023, 13:20. FINDINGS: Surgical changes and devices: None. Lungs and pleura: Lungs are clear. No pleural effusions or pneumothorax. Mediastinum: Mediastinal contours appear normal. Heart size is normal. Bones and chest wall: No suspicious bony lesions. Overlying soft tissues appear unremarkable. IMPRESSION: No acute pulmonary process. Dictated by: Anitha Arguelles M.D. on 09/14/2024 at 13:49 Approved by: Anitha Arguelles M.D. on 09/14/2024 at 13:49
--- NOTE | 2024-09-14 12:51 | PC.NURSE ---
During IV placement in chair in triage room, patient became hot, diaphoretic, nauseous, and pale stating she felt like she might pass out. I removed the needle and laid her head back until she recovered enough to get into wheelchair. Some labs obtained and sent to lab. No IV placed at this time.
[2024-09-14 12:54] LABS: Add Manual Diff / Slide Review NO; Basophils Absolute Auto 0 /uL (0-100); Basophils Percent Auto 0.5 % (0-2); Eosinophils Absolute Auto 100 /uL (0-450); Hematocrit 43.3 % (36-46); Hemoglobin 15.3 g/dL (12.0-16.0); Lymphocytes Absolute Auto 1200 /uL (1100-4500); Lymphocytes Percent Auto 18.9 % (25-40); Mean Corpuscular HGB Conc 35.2 % (30-36); Mean Corpuscular Hemoglobin 29.2 PG (26-34); Mean Corpuscular Volume 82.9 fL (80-100); Monocytes Absolute Auto 400 /uL (0-900); Monocytes Percent Auto 5.8 % (3-14); Neutrophils Absolute Auto 4800 /uL (1500-7000); Neutrophils Percent Auto 73.8 % (50-75); Platelet Count 227 X10^3/uL (150-400); Red Blood Cell Count 5.23 X10^6/uL (4.0-5.2); Red Cell Distribution Width 14.1 % (11.6-14.8); White Blood Cell Count 6.5 X10^3/uL (4.5-11.0)
[2024-09-14 13:38] LABS: Prothrombin Time 11.8 SECONDS (9.4-12.5)
[2024-09-14 13:40] LABS: PTT Partial Thromboplastin Tim 31 SECONDS (25.1-36.5)
[2024-09-14 14:11] LABS: Alanine Aminotransferase 17 IU/L (<35); Albumin 4.8 g/dL (3.5-5.0); Albumin Globulin Ratio 1.7 (1.0-2.8); Alkaline Phosphatase 58 U/L (38-126); Aspartate Aminotransferase 25 IU/L (14-36); BUN Creatinine Ratio 15.6 (6-22); Bilirubin Total 0.7 mg/dL (0.2-1.3); Blood Urea Nitrogen 17 mg/dL (7-17); Calcium 9.5 mg/dL (8.4-10.2); Carbon Dioxide 29 mmol/L (22-32); Chloride 102 mmol/L (98-107); Creatine Kinase 125 U/L (30-135); Estimated Glomerular Filt Rate > 60 mL/min (>60); Globulin 2.8 g/dL (1.7-4.1); Glucose 103 mg/dL (70-99); HEMOLYSIS < 15 (0-50); Magnesium 2.1 mg/dL (1.6-2.3); Potassium 4.1 mmol/L (3.4-5.1); Sodium 137 mmol/L (137-145); Total Protein 7.6 g/dL (6.3-8.2)
[2024-09-14 14:33] LABS: NT-proBNP (BNP-Adult 18+) < 20 pg/mL (<125)
[2024-09-14 14:37] LABS: Troponin I < 0.012 ng/mL (0.01-0.034)
[2024-09-14 14:54] LABS: Lipase 59 U/L (23-300)
[2024-09-14 15:35] VITALS: BP 126/89; PULSE 84; RESP 16; O2SAT 100
--- NOTE | 2024-09-16 12:19 | PM.EVENT ---
Event Note Event Note (Rapid Response, Code, or fall): Pt left without being seen.
--- NOTE | 2024-09-16 12:19 | ED.GENADULT ---
HPI - General Adult General Chief complaint: Hypertension Stated complaint: high BP, migraine , chest pain arm pain Source: patient Mode of arrival: Ambulatory History of Present Illness HPI narrative: Pt LWBS Related Data Home Medications Medication Instructions Recorded Confirmed cetirizine 10 mg tablet 10 mg PO DAILY 03/26/21 09/14/24 cromolyn 100 mg/5 mL oral mg 09/14/24 concentrate dextroamphetamine-amphetamine ER 1 cap PO QAM 09/14/24 09/14/24 15 mg 24hr capsule,extend release estradiol 10 mcg vaginal tablet 10 mcg vaginal 2XW 09/14/24 09/14/24 quetiapine 25 mg tablet 25 mg PO ONCE PM 09/14/24 09/14/24 sumatriptan succinate 25 mg tablet mg PO 09/14/24 testosterone cypionate 200 mg/mL IM 09/14/24 intramuscular oil Previous Rx's Medication Instructions Recorded albuterol sulfate 90 mcg/actuation 2 puff inhalation Q6H PRN 04/09/22 aerosol inhaler shortness of breath or wheezing #6.7 grams inhalational spacing device #1 ea 08/29/23 (Aerochamber MV spacer) acyclovir 400 mg tablet 400 mg PO BID #60 tabs 07/25/24 Allergies Allergy/AdvReac Type Severity Reaction Status Date / Time iodine AdvReac hives Verified 09/14/24 12:32 Patient History Medical History Chronic tonsillitis Chronic sinusitis IBS (irritable bowel syndrome) [place] disease (1998) Surgical History History of tonsillectomy History of lung biopsy (1998) Social History household members: spouse Smoking Status: Never smoker alcohol intake: never Smoking Status: Never smoker alcohol intake frequency: other Exam Initial Vital Signs Initial Vital Signs: Vital Signs Temperature 96.7 F L 09/14/24 12:28 Pulse Rate 90 09/14/24 12:28 Respiratory Rate 17 09/14/24 12:28 Blood Pressure 144/94 H 09/14/24 12:28 Pulse Oximetry 100 09/14/24 12:28 Oxygen Delivery Method Room Air 09/14/24 12:28 Medical Decision Making Lab Data 09/14/24 12:45 09/14/24 13:15 Labs: Lab Results 09/14/24 09/14/24 Range/Units 12:45 13:15 WBC 6.5 (4.5-11.0) X10^3/uL RBC 5.23 H (4.0-5.2) X10^6/uL Hgb 15.3 (12.0-16.0) g/dL Hct 43.3 (36-46) % MCV 82.9 (80-100) fL MCH 29.2 (26-34) PG MCHC 35.2 (30-36) % RDW 14.1 (11.6-14.8) % Plt Count 227 (150-400) X10^3/uL Neut % (Auto) 73.8 (50-75) % Lymph % (Auto) 18.9 L (25-40) % [place]alier % (Auto) 5.8 (3-14) % Eos % (Auto) 1.0 L (2-4) % Baso % (Auto) 0.5 (0-2) % Neut # (Auto) 4800 (6482-6778) /uL Lymph # (Auto) 1200 (3876-7575) /uL [place]ier # (Auto) 400 (0-900) /uL Eos # (Auto) 100 (0-450) /uL Baso # (Auto) 0 (0-100) /uL PT 11.8 (9.4-12.5) SECONDS INR 1.0 (0.9-1.3) APTT 31 (25.1-36.5) SECONDS Sodium 137 (137-145) mmol/L Potassium 4.1 (3.4-5.1) mmol/L Chloride 102 (98-107) mmol/L Carbon Dioxide 29 (22-32) mmol/L BUN 17 (7-17) mg/dL Creatinine 1.09 H (0.52-1.04) mg/dL Estimated GFR > 60 (>60) mL/min BUN/Creatinine Ratio 15.6 (6-22) Glucose 103 H (70-99) mg/dL Calcium 9.5 (8.4-10.2) mg/dL Magnesium 2.1 (1.6-2.3) mg/dL Total Bilirubin 0.7 (0.2-1.3) mg/dL AST 25 (14-36) IU/L ALT 17 (<35) IU/L Alkaline Phosphatase 58 (38-126) U/L Total Creatine Kinase 125 (30-135) U/L Troponin I < 0.012 (0.01-0.034) ng/mL NT-Pro-B Natriuret Pep < 20 (<125) pg/mL Total Protein 7.6 (6.3-8.2) g/dL Albumin 4.8 (3.5-5.0) g/dL Globulin 2.8 (1.7-4.1) g/dL Albumin/Globulin Ratio 1.7 (1.0-2.8) Lipase 59 (23-300) U/L Discharge Plan Departure Patient Disposition: Left Without Being Seen Clinical Impression: Patient left before evaluation by physician Prescriptions: No Action albuterol sulfate 90 mcg/actuation HFA aerosol inhaler 2 puff inhalation Q6H PRN (Reason: shortness of breath or wheezing) Qty: 6.7 0RF acyclovir 400 mg tablet 400 mg PO BID Qty: 60 6RF (DME) Aerochamber MV Spacer See Rx Instructions .Route Qty: 1 0RF Rx Instructions: As directed cetirizine 10 mg Tablet 10 mg PO DAILY cromolyn 100 mg/5 mL concentrate Patient Comments: [NO ORIGINAL SIG] quetiapine 25 mg tablet 25 mg PO ONCE PM sumatriptan succinate 25 mg tablet PO testosterone cypionate 200 mg/mL oil IM dextroamphetamine-amphetamine 15 mg capsule,extended release 24hr 1 cap PO QAM estradiol 10 mcg tablet 10 mcg vaginal 2XW
== END 2024-09-14 16:43 | disposition left against medical advice (07) ==
PROVIDERS: Emergency Provider Student in an Organized Health Care Education/Training Program; PCP Naturopath
DX: I10 Essential (primary) hypertension (principal); R07.9 Chest pain, unspecified
CPT/HCPCS: 71045; 80053; 82550; 83690; 83735; 83880; 84484; 85025; 85610; 85730; 93005; 99281

== ENCOUNTER → 2024-12-27 12:13 | Outpatient (CLI) | payer OTHER, SELFPAY ==
[2024-12-27 14:25] LABS: Urine N gonorrhoeae NOT DETECTED
[2024-12-27 14:57] LABS: Urine Chlamydia NOT DETECTED
[2024-12-27 15:13] LABS: Estradiol, Total 31.0 pg/mL
[2024-12-28 09:40] LABS: Rubeola Measles IgG > 300.0 AU/mL (Immune >16.4)
== END ==
PROVIDERS: PCP Naturopath; Referring Provider Naturopath; Visit Provider Naturopath
DX: Z01.84 Encounter for antibody response examination (principal); F64.9 Gender identity disorder, unspecified; Z11.3 Encounter for screening for infections with a predominantly sexual mode of transmission
CPT/HCPCS: 36415; 82670; 84403; 86592; 86735; 86762; 86765; 87491; 87591

== ENCOUNTER → 2025-01-23 09:18 | Outpatient (CLI) | payer OTHER, SELFPAY ==
[2025-01-23 10:08] LABS: Add Manual Diff / Slide Review NO; Hematocrit 41.5 % (36-46); Hemoglobin 14.4 g/dL (12.0-16.0); Lymphocytes Absolute Auto 1400 /uL (1100-4500); Mean Corpuscular HGB Conc 34.8 % (30-36); Mean Corpuscular Hemoglobin 29.2 PG (26-34); Mean Corpuscular Volume 84.0 fL (80-100); Platelet Count 215 X10^3/uL (150-400)
[2025-01-23 10:30] LABS: Appearance Urine UA CLEAR; Bilirubin Urine UA 1+ (NEGATIVE); Color Urine UA YELLOW; Glucose Urine UA NEGATIVE (Negative); Ketones Urine UA TRACE (NEGATIVE); Leukocyte Esterase Urine UA 1+ (NEGATIVE); Nitrite Urine UA NEGATIVE (Negative); Occult Blood Urine UA 1+ (Negative); Protein Urine UA 1+ (Negative); Specific Gravity Urine UA >=1.030 (1.000-1.035); Urobilinogen Urine UA 1.0 E.U./dL (0.2)
[2025-01-23 10:33] LABS: pH Urine UA 5.5 (4.5-8.0)
[2025-01-23 10:35] LABS: Alanine Aminotransferase 18 IU/L (<35); Albumin 4.7 g/dL (3.5-5.0); Albumin Globulin Ratio 1.9 (1.0-2.8); Alkaline Phosphatase 52 U/L (38-126); Blood Urea Nitrogen 19 mg/dL (7-17); Calcium 9.5 mg/dL (8.4-10.2); Carbon Dioxide 27 mmol/L (22-32); Chloride 103 mmol/L (98-107); Estimated Glomerular Filt Rate > 60 mL/min (>60); Globulin 2.5 g/dL (1.7-4.1); Glucose 89 mg/dL (70-99); HEMOLYSIS < 15 (0-50); Ictotest Urine Negative (Negative); Potassium 3.9 mmol/L (3.4-5.1); Sodium 140 mmol/L (137-145); Total Protein 7.2 g/dL (6.3-8.2)
[2025-01-23 10:37] LABS: Culture Indicated Urine Specimen Cultured
[2025-01-23 11:09] LABS: Estradiol, Total 29.0 pg/mL
== END ==
PROVIDERS: PCP Naturopath; Referring Provider Naturopath; Visit Provider Naturopath
DX: E34.9 Endocrine disorder, unspecified (principal); M79.89 Other specified soft tissue disorders; N89.8 Other specified noninflammatory disorders of vagina; Z82.3 Family history of stroke; R60.9 Edema, unspecified
CPT/HCPCS: 36415; 80053; 81001; 82670; 84403; 85025; 85379; 87086

== ENCOUNTER → 2025-01-28 07:15 | Outpatient (CLI) | payer OTHER, SELFPAY ==
--- NOTE | 2025-01-28 07:16 | DI.US.S_ITS ---
PROCEDURE: US PERIPH VENOUS LOW EXTREM BI INDICATIONS: r/o blood clot lymphedema TECHNIQUE: Real-time imaging, as well as color and pulse Doppler interrogation, were performed of the deep veins of both legs from the inguinal ligament to the popliteal fossa, with documentation of the visualized calf veins. COMPARISON: None. FINDINGS: Right: The common femoral, femoral, popliteal, and the visualized calf veins are normally compressible, and free of intraluminal thrombus. Color and pulse Doppler demonstrate normal phasic intravascular flow. There is normal augmentation response to distal compression maneuver. Left: The common femoral, femoral, popliteal, and the visualized calf veins are normally compressible, and free of intraluminal thrombus. Color and pulse Doppler demonstrate normal phasic intravascular flow. There is normal augmentation response to distal compression maneuver. IMPRESSION: No findings of deep venous thrombosis in either lower extremity. Dictated by: Antonio Abreu M.D. on 01/28/2025 at 8:06 Approved by: Antonio Abreu M.D. on 01/28/2025 at 8:06
== END ==
LOC: US 07:15
PROVIDERS: PCP Naturopath; Referring Provider Naturopath; Visit Provider Naturopath
DX: R60.9 Edema, unspecified (principal); M79.89 Other specified soft tissue disorders; Z82.3 Family history of stroke
CPT/HCPCS: 93970